=== PATIENT | female | born 1945 | race Caucasian/White ===

== ENCOUNTER 2016-11-06 09:44 | Emergency (ER) | payer OTHER ==
[~2016-11-06] VITALS: Ht 166.4 cm; Wt 97.5 kg
[~2016-11-06 09:44] MED LIST: ATEN-173 PO; NVLG SQ
[2016-11-06 09:52] VITALS: TEMP 37.8; Ht 166.4 cm; Wt 97.5 kg
[2016-11-06 10:06] VITALS: O2SAT 94
[2016-11-06] MEDS ORDERED: ONDANSETRON INJ 2 MG/ML 2 ML VIAL IV STA (10:10)
[2016-11-06] MEDS ORDERED: SODIUM CHLORIDE 0.9% 1000ML 2,000 ML IV ONE (10:15)
[2016-11-06 10:23] LABS: BASO % 0.4 %; BASO ABS # 0.04 K/uL (0-0.2); COMPLETE YES; EOS % 0.8 %; HEMATOCRIT 33.1 % (37-47); IG% 0.2 %; LYMPH % 15.3 %; LYMPH ABS # 1.36 K/uL (1.2-3.4); MEAN CELL VOLUME 81.9 fL (80-100); MEAN CORPUSCULAR HEMOGLOBIN 27.7 pg (25-34); MEAN CORPUSCULAR HGB CONC 33.8 g/dl (32-36); MEAN PLATELET VOLUME 8.8 fL (7.4-10.4); MONO % 14.1 %; NEUT % 69.2 %; PLATELET COUNT 219 K/uL (130-400); RED BLOOD COUNT 4.04 M/uL (4.2-5.4); WHITE BLOOD COUNT 8.91 K/uL (4.8-10.8)
--- NOTE | 2016-11-06 10:32 | EMERGENCY ROOM VISIT NOTE ---
History Report prepared by Ulises: Lindsey Harmon Under the Supervision of: Dr. Ronal Caldwell D.O. First contact with patient: 09:56 Chief Complaint: NAUSEA Stated Complaint: PAIN W/BREATHING, NAUSEA, VOMITING HX: DIABETES Nursing Triage Summary: Pt c/o nausea and vomiting since this morning and earlier in the week in "the lower lobes of my lungs I had some discomfort". Remicade was supposed to be adminstered today so assumed pain was because it was due. BSG this am was 124. Cough productive since this am. History of Present Illness The patient is a 71 year old female who presents to the Emergency Room with complaints of persistent nausea that began this morning. She currently rates her discomfort as a 6/10 in severity. The patient states that she woke this morning with nausea and then began vomiting around 0800. She states that she also noticed some slight shortness of breath, but denies any chest pain. The patient states that she was supposed to have a Remicade infusion this morning for her psoriatic arthritis. She states that her and her daughter called the doctor's office and was instructed to come to the emergency department for further evaluation and treatment. The patient denies any fevers or abdominal pain. She states that she has had many sick contacts with colds, but denies anyone being diagnosed with the flu. The patient states that she got her flu shot this year. She states that she had pneumonia in the fall. The patient denies any history of PEs, DVTs, or cancer, but notes a family history of cancer , noting that both of her parents from cancer. She denies any recreational drug use, smoking, or drinking. The patient states that she took her medications this morning, but vomited them all back up other than her Levothyroxine and cranberry pills. Source of History: patient Onset: this morning Position: other (global) Symptom Intensity: 6/10 Quality: other (nausea and vomiting) Timing: other (persistent) Associated Symptoms: + SOB, No abdominal pain, No chest pain, No fevers Review of Systems See above for pertinent positives & negatives. A total of 10 systems reviewed and were otherwise negative. Past Medical & Surgical Medical Problems: (1) Diabetes (2) High blood pressure Family History Cancer Diabetes mellitus Hypertension Social History Smoking Status: Never Smoker Alcohol Use: none Drug Use: none Marital Status: single Housing Status: lives with family Occupation Status: unemployed Current/Historical Medications Scheduled Aspirin (Aspirin Ec), 81 MG PO DAILY Atenolol (Tenormin), 75 MG PO DAILY Cranberry-Vitamin C-Vitamin E (Cranberry), 1 CAP PO DAILY Cyanocobalamin (Vitamin B-12), 1,000 MCG PO DAILY Hydralazine Hcl (Apresoline), 10 MG PO QID Hydrochlorothiazide (Hctz), 25 MG PO DAILY Insulin Aspart (Novolog), Unknown Dose SQ UD Insulin Glargine (Lantus Solostar), 70 UNITS SC HS Levofloxacin (Levaquin), 750 MG PO DAILY Levothyroxine Sodium (Synthroid), 125 MCG PO DAILY Metformin Hcl (Glucophage), 250 MG PO BID Multivitamin (Multivitamin), 1 TAB PO DAILY Ramipril (Altace), 10 MG PO BID Rosuvastatin Calcium (Crestor), 20 MG PO HS Scheduled PRN Acetaminophen (Tylenol), 1,000 MG PO DIRECTED PRN for Pain Prochlorperazine Maleate (Compazine), 10 MG PO Q6H PRN for Nausea Miscellaneous Medications Infliximab (Remicade), MG IV Allergies Coded Allergies: Rosiglitazone (Verified Allergy, Severe, leg and arm swelling, heaviness in chest, 11/06/16) Acetaminophen (Unverified Allergy, Unknown, unknown, 11/06/16) Flurbiprofen (Verified Allergy, Unknown, nausea, muscle pain, pain in side , 11/06/16) Insulin Isophane (Verified Adverse Reaction, Intermediate, funny feeling in the morning, urinated more, dry mouth, 11/06/16) Amlodipine (Verified Adverse Reaction, Mild, nausea and dizziness, 11/06/16 ) Amoxicillin (Verified Adverse Reaction, Mild, nausea, diarrhea, 11/06/16) Cephalexin (Verified Adverse Reaction, Mild, diarrhea, vomiting, 11/06/16) Hydrochlorothiazide (Verified Adverse Reaction, Mild, DECREASE IN URINE OUTPUT, 11/06/16) Metformin (Verified Adverse Reaction, Mild, diarrhea and metal taste, 11/06) Naproxen (Verified Adverse Reaction, Mild, interference with kidney function, 11/06/16) Nitrofurantoin (Verified Adverse Reaction, Mild, diarrhea,vomiting, ) Pioglitazone (Verified Adverse Reaction, Mild, dry mouth, 11/06/16) Propoxyphene (Verified Adverse Reaction, Mild, NAUSEA, DIZZINESS, 11/06/16) Sulfamethoxazole w/Trimethoprim (Verified Adverse Reaction, Mild, diarrhea and vomiting, 11/06/16) Sulindac (Verified Adverse Reaction, Mild, fast heart beat, 11/06/16) Physical Exam Vital Signs Date Time Temp Pulse Resp B/P Pulse Ox O2 Delivery O2 Flow Rate FiO2 11/06/16 13:30 86 16 152/73 95 Room Air 11/06/16 11:30 101 19 126/64 92 Room Air 11/06/16 10:17 113 11/06/16 10:08 118 20 196/78 94 Room Air 11/06/16 10:06 94 Room Air 11/06/16 09:52 37.8 108 19 131/66 93 Room Air Physical Exam GENERAL: Patient is well appearing and in no acute distress. HEENT: No acute trauma, normocephalic atraumatic, mucous membranes moist, no nasal congestion, no scleral icterus. NECK: No stridor, no adenopathy, no meningismus, trachea is midline. CHEST: Mild tenderness to palpation to the bilateral lower chest. LUNGS: Scattered rhonchi bilaterally. No dyspnea. equal bilaterally. No wheeze. HEART: Tachycardic rate and regular rhythm. No murmurs, rubs, gallops appreciated. ABDOMEN: Soft, nontender, bowel sounds positive, no masses appreciated, no peritonitis. BACK: No midline tenderness, no CVA tenderness EXTREMITIES: Normal motion all extremities, no cyanosis, no edema. NEUROLOGIC: Alert and oriented, no acute motor or sensory deficits, no focal weakness, cranial nerves grossly intact. SKIN: No rash, no jaundice, no diaphoresis. Medical Decision & Procedures ER Provider Diagnostic Interpretation: X ray results and stated below per my interpretation and radiologist interpretation. Other radiology results and stated below per my review and radiologist interpretation: Chest x-ray 2 view: infiltrate in the left base. CHEST 2 VIEWS ROUTINE CLINICAL HISTORY: Left lower chest pain, nausea and vomiting. COMPARISON STUDY: Chest radiograph July 25, 2016. FINDINGS: There is no pneumothorax or pleural effusion. Lung volumes are at the lower limits of normal. Cardiomediastinal silhouette is unremarkable. There is no evidence of pulmonary edema. Linear left lower lung opacity favors atelectasis. IMPRESSION: 1. No acute findings. 2. Linear left basilar opacity suggestive of atelectasis. Electronically signed by: Sumeet Durand M.D. 11/06/2016 11:13 AM Dictated Date/Time: 11/06/2016 11:11 AM Laboratory Results 11/06/16 10:05 Red Blood Count 4.04, Mean Corpuscular Volume 81.9, Mean Corpuscular Hemoglobin 27.7, Mean Corpuscular Hemoglobin Concent 33.8, Mean Platelet Volume 8.8, Neutrophils (%) (Auto) 69.2, Lymphocytes (%) (Auto) 15.3, Monocytes (%) (Auto) 14.1, Eosinophils (%) (Auto) 0.8, Basophils (%) (Auto) 0.4, Neutrophils # (Auto ) 6.16, Lymphocytes # (Auto) 1.36, Monocytes # (Auto) 1.26, Eosinophils # (Auto ) 0.07, Basophils # (Auto) 0.04 11/06/16 10:05 Test 11/06/16 00:00 11/06/16 10:05 11/06/16 12:50 Influenza Type A (RT-PCR) POS for Influ A (NEG) Influenza Type B (RT-PCR) Neg for Influ B (NEG) White Blood Count 8.91 K/uL (4.8-10.8) Red Blood Count 4.04 M/uL (4.2-5.4) Hemoglobin 11.2 g/dL (12.0-16.0) Hematocrit 33.1 % (37-47) Mean Corpuscular Volume 81.9 fL (80-100) Mean Corpuscular Hemoglobin 27.7 pg (25-34) Mean Corpuscular Hemoglobin Concent 33.8 g/dl (32-36) Platelet Count 219 K/uL (130-400) Mean Platelet Volume 8.8 fL (7.4-10.4) Neutrophils (%) (Auto) 69.2 % Lymphocytes (%) (Auto) 15.3 % Monocytes (%) (Auto) 14.1 % Eosinophils (%) (Auto) 0.8 % Basophils (%) (Auto) 0.4 % Neutrophils # (Auto) 6.16 K/uL (1.4-6.5) Lymphocytes # (Auto) 1.36 K/uL (1.2-3.4) Monocytes # (Auto) 1.26 K/uL (0.11-0.59) Eosinophils # (Auto) 0.07 K/uL (0-0.5) Basophils # (Auto) 0.04 K/uL (0-0.2) RDW Standard Deviation 45.5 fL (36.4-46.3) RDW Coefficient of Variation 15.3 % (11.5-14.5) Immature Granulocyte % (Auto) 0.2 % Immature Granulocyte # (Auto) 0.02 K/uL (0.00-0.02) D-Dimer 450 ug/L FEU (0-500) Anion Gap 12.0 mmol/L (3-11) Est Creatinine Clear Calc Drug Dose 56.3 ml/min Estimated GFR () 59.3 Estimated GFR (Non- 51.2 BUN/Creatinine Ratio 23.7 (10-20) Calcium Level 9.0 mg/dl (8.5-10.1) Total Bilirubin 0.5 mg/dl (0.2-1) Direct Bilirubin 0.1 mg/dl (0-0.2) Aspartate Amino Transf (AST/SGOT) 145 U/L (15-37) Alanine Aminotransferase (ALT/SGPT) 66 U/L (12-78) Alkaline Phosphatase 37 U/L (45-117) Total Protein 8.0 gm/dl (6.4-8.2) Albumin 4.1 gm/dl (3.4-5.0) Lipase 259 U/L (73-393) Urine Color YELLOW Urine Appearance CLEAR (CLEAR) Urine pH 5.0 (4.5-7.5) Urine Specific [place] 1.013 (1.000-1.030) Urine Protein NEG (NEG) Urine Glucose (UA) NEG (NEG) Urine Ketones NEG (NEG) Urine Occult Blood NEG (NEG) Urine Nitrite POS (NEG) Urine Bilirubin NEG (NEG) Urine Urobilinogen NEG (NEG) Urine Leukocyte Esterase TRACE (NEG) Urine WBC (Auto) 5-10 /hpf (0-5) Urine RBC (Auto) 0-4 /hpf (0-4) Urine Hyaline Casts (Auto) 0 /lpf (0-5) Urine Epithelial Cells (Auto) >30 /lpf (0-5) Urine Bacteria (Auto) 1+ (NEG) Laboratory results as reviewed by me. Medications Administered Medications (Trade) Dose Ordered Sig/Elke Route Start Time Stop Time Status Last Admin Dose Admin Sodium Chloride (Nss 1000ml) 2,000 ml @ 999 mls/hr Q2H1M ONCE IV 11/06/16 10:15 11/06/16 12:15 DC 11/06/16 10:15 999 MLS/HR Ondansetron HCl 4 mg 4 mg NOW STAT IV 11/06/16 10:10 11/06/16 10:14 DC 11/06/16 10:26 4 MG Ceftriaxone Sodium/Dextrose (Rocephin Inj/D5 50ml) 70 ml @ 100 mls/hr TODAY@1130 IV 11/06/16 11:30 11/06/16 16:00 11/06/16 11:41 100 MLS/HR Levofloxacin (Levaquin / D5W) 750 mg TODAY@1100 IV 11/06/16 11:00 11/06/16 15:00 11/06/16 12:19 750 MG ECG Indication: SOB/dyspnea Rate (beats per minute): 113 Rhythm: sinus tachycardia Findings: other (Normal axis, normal intervals, no ST Segment changes) Comparison ECG Date: 07/25/16 Change: EKG Change: When compared to EKG done on 07/25/16, sinus tachycardia is now present, no other changes. ED Course 1003: The patient was evaluated in room A12B. A complete history and physical exam was performed. 1010: Ordered Zofran Inj 4 mg IV. 1015: Ordered Sodium Chloride 2000 ml @ 999 mls/hr IV. 1100: Ordered Levofloxacin 750 mg IV. 1130: Ordered Ceftriaxone Sodium 2000 mg/Dextrose 70 ml @ 100 mls/hr IV. 1152: I reevaluated the patient and she is feeling better. 1235: I reevaluated the patient and I informed her of her positive flu finding. 1421: I reevaluated the patient and she is resting comfortably. I discussed all the exam findings with her and I discussed the treatment plan. She verbalized complete understanding and agreement. She is ready to go home. Medical Decision Differential diagnosis: Etiologies such as gastroenteritis, food borne illness, infections, appendicitis , diverticulitis, inflammatory bowel disease, obstruction, GI bleed, biliary pathology, influenza, pneumonia as well as others were entertained. Patient is a 71-year-old female on Remicade for psoriatic arthritis which indicates a relative immunocompromise, who presents with a low-grade temperature , shortness of breath generalized malaise concern for pneumonia which she had before with similar symptoms. Chest x-ray today reveals a left lower lobe infiltrate which is likely the cause of her symptoms this would be a community- acquired pneumonia. In review of her allergies she has many adverse reactions however minimal anna allergic reactions. Accordingly have written for Rocephin and Levaquin IV dosing here and Levaquin to take as an outpatient. She'll be volume resuscitated with 2 L normal saline. Patient feels much improved after receiving IV antibiotics and normal saline, advised to avoid patient's or immunocompromise or extremes of days for the next 2 weeks, influenza B-positive no indication for Tamiflu, put on Levaquin as outpatient, will follow up with primary care doc in 1-2 weeks. Advised to call her primary doctor who prescribed the Remicade, will likely need to push the Remicade dosing off another week Impression Primary Impression: LLL pneumonia Additional Impressions: Psoriatic arthritis Tachycardia Dehydration Influenza B Scribe Attestation The scribe's documentation has been prepared under my direction and personally reviewed by me in its entirety. I confirm that the note above accurately reflects all work, treatment, procedures, and medical decision making performed by me. Departure Information Dispostion Home / Self-Care Prescriptions Prochlorperazine Maleate (COMPAZINE) 10 Mg Tab 10 MG PO Q6H Y for Nausea, #10 TAB Prov: Ronal Caldwell, D.O. 11/06/16 Levofloxacin (Levaquin) 750 Mg Tab 750 MG PO DAILY, #5 TAB Prov: Ronal Caldwell, D.O. 11/06/16 Referrals Moisés Saleem M.D. (PCP) Forms HOME CARE DOCUMENTATION FORM, IMPORTANT VISIT INFORMATION Patient Instructions ED Pneumonia, My [facility] Additional Instructions Follow-up with her primary care provider in 1-2 weeks for repeat chest x-ray to ensure resolution of pneumonia. Return immediately for increasing shortness of breath, chest pain, passing out or any other concerns. Call your primary doctor regarding your next Remicade infusion and whether that needs to be pushed back in another week Work Instructions Return To Work: 2 days Problem Qualifiers
[2016-11-06 10:45] LABS: BUN/CREATININE RATIO 23.7 (10-20); CREATININE 1.1 mg/dl (0.60-1.20); POTASSIUM 3.9 mmol/L (3.5-5.1)
[2016-11-06] MEDS ORDERED: LEVO1TAB35 PO (10:54)
[2016-11-06] MEDS ORDERED: LEVAQUIN 750MG / 150ML D5W IV SCH (11:00)
--- NOTE | 2016-11-06 11:15 | DIAGNOSTIC IMAGING REPORT ---
CHEST 2 VIEWS ROUTINE CLINICAL HISTORY: Left lower chest pain, nausea and vomiting. COMPARISON STUDY: Chest radiograph July 25, 2016. FINDINGS: There is no pneumothorax or pleural effusion. Lung volumes are at the lower limits of normal. Cardiomediastinal silhouette is unremarkable. There is no evidence of pulmonary edema. Linear left lower lung opacity favors atelectasis. IMPRESSION: 1. No acute findings. 2. Linear left basilar opacity suggestive of atelectasis. Electronically signed by: Sumeet Durand M.D. 11/06/2016 11:13 AM Dictated Date/Time: 11/06/2016 11:11 AM
[2016-11-06] MEDS ORDERED: CEFTRIAXONE SOD INJ 2,000 MG in DEXTROSE 5% 50ML 50 ML IV SCH (11:30)
[2016-11-06 12:31] LABS: INFLUENZA B PCR Neg for Influ B (NEG)
[2016-11-06 12:34] LABS: INFLUENZA A PCR POS for Influ A (NEG)
[2016-11-06 13:22] LABS: URINE APPEARANCE CLEAR (CLEAR); URINE BILIRUBIN NEG (NEG); URINE COLOR YELLOW; URINE EPITHELIAL CELL AUTO >30 /lpf (0-5); URINE NITRITE POS (NEG); URINE SPECIFIC GRAVITY 1.013 (1.000-1.030); UROBILINOGEN NEG (NEG)
[2016-11-06 13:30] LABS: MANUAL MICROSCOPIC REQUIRED? NO; REVIEW REQ? NO
[2016-11-06] MEDS ORDERED: PROC1TAB5 PO (14:22)
[2016-11-06] MEDS ORDERED: PROCHLORPERAZINE 5 MG/ML 2 ML VIAL ONE (14:47)
[2016-11-06 15:13] VITALS: BP 149/77; PULSE 93; O2SAT 95
[2016-11-07] MEDS ORDERED: ACET-1256 PO (10:18)
[2016-11-07] MEDS ORDERED: RMCI IV (12:41)
[2016-11-07] MEDS ORDERED: MULT-506 PO (17:04)
[2016-11-07] MEDS ORDERED: CYAN10005 PO (17:04)
[2016-11-07] MEDS ORDERED: ROSU20TA PO (17:04)
[2016-11-07] MEDS ORDERED: GLC/500 PO (17:04)
[2016-11-07] MEDS ORDERED: INSDGIPEN SC (17:04)
[2016-11-07] MEDS ORDERED: CRAN1CAP15 PO (17:04)
[2016-11-07] MEDS ORDERED: HYDR25TA4 PO (17:04)
[2016-11-07] MEDS ORDERED: HYDR-4715 PO (17:04)
[2016-11-07] MEDS ORDERED: ALT/10 PO (17:04)
[2016-11-07] MEDS ORDERED: ASPI81TA28 PO (17:04)
[2016-11-07] MEDS ORDERED: LEVO125T72 PO (17:04)
[2016-11-07] MEDS ORDERED: NVLGI/PEN SC (18:59)
[2016-11-07] MEDS ORDERED: ONDA4TAB46 PO (18:59)
[2016-11-07] MEDS ORDERED: ATEN100T PO (19:11)
[2016-11-09] MEDS ORDERED: TNR25 PO (16:32)
[2016-11-09] MEDS ORDERED: BENZ100C7 PO (16:32)
[2016-11-09] MEDS ORDERED: TMF75 PO (16:32)
[2016-11-09] MEDS ORDERED: INSDGIPEN SC (16:49)
== END 2016-11-06 15:22 | disposition home or self-care (01) ==
LOC: C.EDB 09:46 → C.EDA 15:22
DX: J18.9 Pneumonia, unspecified organism (principal); J11.1 Influenza due to unidentified influenza virus with other respiratory manifestations; L40.50 Arthropathic psoriasis, unspecified; E86.0 Dehydration; R00.0 Tachycardia, unspecified; E11.9 Type 2 diabetes mellitus without complications; I10 Essential (primary) hypertension; Z79.4 Long term (current) use of insulin; Z79.82 Long term (current) use of aspirin; Z79.84 Long term (current) use of oral hypoglycemic drugs; Z79.899 Other long term (current) drug therapy; Z88.1 Allergy status to other antibiotic agents; Z88.2 Allergy status to sulfonamides; Z88.6 Allergy status to analgesic agent; Z88.8 Allergy status to other drugs, medicaments and biological substances; Z80.9 Family history of malignant neoplasm, unspecified; Z83.3 Family history of diabetes mellitus; Z82.49 Family history of ischemic heart disease and other diseases of the circulatory system

== ENCOUNTER 2016-11-07 17:47 | Inpatient (IN) | payer OTHER ==
[~2016-11-07] VITALS: Ht 167.6 cm; Wt 97.2 kg
[~2016-11-07 17:47] MED LIST changes: +ACET-1256 PO; +ALT/10 PO; +ASPI81TA28 PO; +CRAN1CAP15 PO; +CYAN10005 PO; +GLC/500 PO; +HYDR-4715 PO; +HYDR25TA4 PO; +INSDGIPEN SC; +LEVO125T72 PO; +LEVO1TAB35 PO; +MULT-506 PO; +PROC1TAB5 PO; +RMCI IV; +ROSU20TA PO
--- NOTE | 2016-11-07 18:12 | EMERGENCY ROOM VISIT NOTE ---
History Report prepared by Ulises: Marco Jonas Under the Supervision of: Dr. Mikal Sheth M.D. First contact with patient: 17:56 Chief Complaint: DIARRHEA Stated Complaint: DIARRHEA W/BLACK,VOMITING,FATIGUE-HERE 32 HRS AGO Nursing Triage Summary: triage note: pt reports nausea, vomitting diarhhea since yesterday. daughter reports pt has + flu and pnx. daughter reports "there was some black in her stool." History of Present Illness The patient is a 71 year old female who presents to the Emergency Room with complaints of diarrhea that began yesterday. The patient was diagnosed with influenza, pneumonia, and dehydration 32 hours ago in the ED. The diarrhea is a new symptom that began yesterday. The patient and her daughter report that the patient has been having nausea, vomiting, melena, diarrhea, fatigue, and abdominal pain. She rates her current symptom severity an 8/10. She does not currently have a fever. The Levaquin only stayed in her system for only about two hours yesterday due to emesis. Source of History: patient Onset: yesterday Position: other (GI) Symptom Intensity: 8/10 Quality: other (diarrhea) Timing: worsening Associated Symptoms: + abdominal pain, + fatigue, + melena, + nausea, + vomiting, No fevers Review of Systems All systems have been listed, reviewed, and are negative other than those previously mentioned. Please see Additional Medical History Sheet. Past Medical & Surgical Medical Problems: (1) Diabetes (2) High blood pressure (3) UTI (urinary tract infection) Family History Cancer Diabetes mellitus Hypertension Social History Smoking Status: Never Smoker Alcohol Use: none Drug Use: none Marital Status: single Housing Status: lives with family Occupation Status: unemployed Current/Historical Medications Scheduled Aspirin (Aspirin Ec), 81 MG PO DAILY Atenolol (Tenormin), 100 MG PO DAILY Cranberry-Vitamin C-Vitamin E (Cranberry), 1 CAP PO DAILY Cyanocobalamin (Vitamin B-12), 1,000 MCG PO DAILY Hydralazine Hcl (Apresoline), 10 MG PO QID Hydrochlorothiazide (Hctz), 25 MG PO DAILY Infliximab (Remicade), 1 DOSE IV [id number] Insulin Aspart (Novolog Flexpen), 1 DOSE SC UD Insulin Glargine (Lantus Solostar), 70 UNITS SC HS Levofloxacin (Levaquin), 750 MG PO DAILY Levothyroxine Sodium (Synthroid), 125 MCG PO DAILY Metformin Hcl (Glucophage), 250 MG PO BID Multivitamin (Multivitamin), 1 TAB PO DAILY Ramipril (Altace), 10 MG PO BID Rosuvastatin Calcium (Crestor), 20 MG PO HS Scheduled PRN Acetaminophen (Tylenol), 1,000 MG PO UD PRN for Pain or Fever Ondansetron Hcl (Zofran), 4 MG PO Q6H PRN for Nausea Allergies Coded Allergies: Rosiglitazone (Verified Allergy, Severe, leg and arm swelling, heaviness in chest, 11/06/16) Acetaminophen (Unverified Allergy, Unknown, unknown, 11/06/16) Flurbiprofen (Verified Allergy, Unknown, nausea, muscle pain, pain in side , 11/06/16) Insulin Isophane (Verified Adverse Reaction, Intermediate, funny feeling in the morning, urinated more, dry mouth, 11/06/16) Amlodipine (Verified Adverse Reaction, Mild, nausea and dizziness, 11/06/16 ) Amoxicillin (Verified Adverse Reaction, Mild, nausea, diarrhea, 11/06/16) Cephalexin (Verified Adverse Reaction, Mild, diarrhea, vomiting, 11/06/16) Hydrochlorothiazide (Verified Adverse Reaction, Mild, DECREASE IN URINE OUTPUT, 11/06/16) Metformin (Verified Adverse Reaction, Mild, diarrhea and metal taste, 11/06) Naproxen (Verified Adverse Reaction, Mild, interference with kidney function, 11/06/16) Nitrofurantoin (Verified Adverse Reaction, Mild, diarrhea,vomiting, ) Pioglitazone (Verified Adverse Reaction, Mild, dry mouth, 11/06/16) Propoxyphene (Verified Adverse Reaction, Mild, NAUSEA, DIZZINESS, 11/06/16) Sulfamethoxazole w/Trimethoprim (Verified Adverse Reaction, Mild, diarrhea and vomiting, 11/06/16) Sulindac (Verified Adverse Reaction, Mild, fast heart beat, 11/06/16) Physical Exam Vital Signs Date Time Temp Pulse Resp B/P Pulse Ox O2 Delivery O2 Flow Rate FiO2 11/07/16 20:00 79 16 118/57 97 Room Air 11/07/16 20:00 36.8 11/07/16 17:53 36.5 52 20 107/63 96 Room Air Physical Exam GENERAL: Patient awake, alert, oriented x 3. Patient follows commands. Patient is well-nourished. Patient appears mildly dehydrated. Patient appears pale, repetitively vomiting on evaluation. Patient is in moderate distress. SKIN: No erythema, pallor, cyanosis or rash HEENT: Normal head, pupils equal, reactive to light and accommodation. Oral cavity and posterior pharynx appear normal. LUNGS: Clear to auscultation. No wheezes, no rales, no rhonchi. HEART: No murmurs. No gallops. No rubs ABDOMEN: No masses, no rebound, no hepatomegaly or splenomegaly. EXTREMITIES: No signs of trauma. No pedal or pretibial edema. No calf or thigh tenderness. NEUROLOGIC: Cranial nerves II-XII within normal limits. No gross motor sensory function deficits. Medical Decision & Procedures Laboratory Results 11/07/16 18:00 Red Blood Count 3.84, Mean Corpuscular Volume 82.8, Mean Corpuscular Hemoglobin 27.3, Mean Corpuscular Hemoglobin Concent 33.0, Mean Platelet Volume 8.6, Neutrophils (%) (Auto) 36.6, Lymphocytes (%) (Auto) 35.4, Monocytes (%) (Auto) 27.5, Eosinophils (%) (Auto) 0.0, Basophils (%) (Auto) 0.2, Neutrophils # (Auto ) 2.27, Lymphocytes # (Auto) 2.20, Monocytes # (Auto) 1.71, Eosinophils # (Auto ) 0.00, Basophils # (Auto) 0.01 11/07/16 18:00 Test 11/07/16 18:00 11/07/16 18:06 White Blood Count 6.21 K/uL (4.8-10.8) Red Blood Count 3.84 M/uL (4.2-5.4) Hemoglobin 10.5 g/dL (12.0-16.0) Hematocrit 31.8 % (37-47) Mean Corpuscular Volume 82.8 fL (80-100) Mean Corpuscular Hemoglobin 27.3 pg (25-34) Mean Corpuscular Hemoglobin Concent 33.0 g/dl (32-36) Platelet Count 195 K/uL (130-400) Mean Platelet Volume 8.6 fL (7.4-10.4) Neutrophils (%) (Auto) 36.6 % Lymphocytes (%) (Auto) 35.4 % Monocytes (%) (Auto) 27.5 % Eosinophils (%) (Auto) 0.0 % Basophils (%) (Auto) 0.2 % Neutrophils # (Auto) 2.27 K/uL (1.4-6.5) Lymphocytes # (Auto) 2.20 K/uL (1.2-3.4) Monocytes # (Auto) 1.71 K/uL (0.11-0.59) Eosinophils # (Auto) 0.00 K/uL (0-0.5) Basophils # (Auto) 0.01 K/uL (0-0.2) RDW Standard Deviation 47.5 fL (36.4-46.3) RDW Coefficient of Variation 15.7 % (11.5-14.5) Immature Granulocyte % (Auto) 0.3 % Immature Granulocyte # (Auto) 0.02 K/uL (0.00-0.02) Prothrombin Time 11.4 SECONDS (9.0-12.0) Prothromb Time International Ratio 1.1 (0.9-1.1) Activated Partial Thromboplast Time 30.0 SECONDS (21.0-31.0) Partial Thromboplastin Ratio 1.2 Anion Gap 12.0 mmol/L (3-11) Est Creatinine Clear Calc Drug Dose 51.4 ml/min Estimated GFR () 53.4 Estimated GFR (Non- 46.1 BUN/Creatinine Ratio 21.0 (10-20) Calcium Level 8.4 mg/dl (8.5-10.1) Total Bilirubin 0.3 mg/dl (0.2-1) Aspartate Amino Transf (AST/SGOT) 183 U/L (15-37) Alanine Aminotransferase (ALT/SGPT) 94 U/L (12-78) Alkaline Phosphatase 31 U/L (45-117) Total Protein 7.3 gm/dl (6.4-8.2) Albumin 3.5 gm/dl (3.4-5.0) Globulin 3.8 gm/dl (2.5-4.0) Albumin/Globulin Ratio 0.9 (0.9-2) Lipase 214 U/L (73-393) Bedside Glucose 146 mg/dl (70-90) Laboratory results as stated above per my review. Medications Administered Medications (Trade) Dose Ordered Sig/Elke Route Start Time Stop Time Status Last Admin Dose Admin Ondansetron HCl 4 mg 4 mg Q1HWA PRN IV 11/07/16 18:15 12/07/16 18:14 11/07/16 18:10 4 MG Sodium Chloride 1,000 ml @ 1,000 mls/hr Q1H ONCE IV 11/07/16 18:15 11/07/16 19:14 DC 11/07/16 18:11 1,000 MLS/HR Sodium Chloride 1,000 ml @ 1,000 mls/hr Q1H ONCE IV 11/07/16 20:00 11/07/16 20:59 11/07/16 20:00 1,000 MLS/HR Promethazine HCl/ Sodium Chloride (Phenergan Inj/ Nss 50ml) 50.5 ml @ 204 mls/hr NOW STAT IV 11/07/16 19:47 11/07/16 20:01 DC 11/07/16 20:15 204 MLS/HR ED Course 175: Past medical records reviewed. The patient was evaluated in room A2. A complete history and physical examination was performed. 1814: Sodium Chloride 1000 ml @ 1000 mls/hr IV, Zofran Ing 4 mg IV 1944: I reassessed the patient at this time. She is feeling slightly better. She is still pale and nauseous. 1946: Promethazine HCl 12.5 mg/Sodium Chloride 50.5 ml @ 204 mls/hr IV 1999: Sodium Chloride 1000 ml @ 1000 mls/hr IV 2004: Upon reevaluation, the patient is resting. I discussed today's findings with her. She verbalized agreement of the treatment plan. I spoke with Dr. Stubbs of the [facility] Hospitalist Service to evaluate the patient for further management. Medical Decision Nurses notes reviewed. Medical history sheet reviewed. Differential diagnosis includes but is not limited to: pneumonia, intractable vomiting, and metabolic disorder. The patient was fully evaluated 1 day ago and found to have pneumonia and influenza a. The patient returns today with intractable vomiting. She also had black stool. The patient has been unable to hold down any fluids. Examination today reveals a very pale mildly to moderately dehydrated female. Hemoglobin is down almost 1 g from yesterday. The patient was given IV fluids and Zofran. She was also given Phenergan. Labs from yesterday in addition to labs today were all reviewed. Please see above. I discussed care with the patient and the patient's daughter. I also discussed care with the hospitalist. Consults Time Called: 1951 Consulting Physician: Dr. Stubbs - [facility] Returned Call: 1956 He will be evaluating the patient for further management. Impression Primary Impression: Intractable vomiting Additional Impressions: Dehydration PNA (pneumonia) Influenza Scribe Attestation The scribe's documentation has been prepared under my direction and personally reviewed by me in its entirety. I confirm that the note above accurately reflects all work, treatment, procedures, and medical decision making performed by me. Departure Information Dispostion Being Evaluated By Hospitalist Referrals Moisés Saleem M.D. (PCP) Patient Instructions My [facility] Problem Qualifiers
[2016-11-07 18:13] LABS: BASO % 0.2 %; BASO ABS # 0.01 K/uL (0-0.2); COMPLETE YES; HEMATOCRIT 31.8 % (37-47); IG% 0.3 %; LYMPH % 35.4 %; MEAN CELL VOLUME 82.8 fL (80-100); MEAN CORPUSCULAR HEMOGLOBIN 27.3 pg (25-34); MEAN PLATELET VOLUME 8.6 fL (7.4-10.4); MONO % 27.5 %; NEUT % 36.6 %; PLATELET COUNT 195 K/uL (130-400); RED BLOOD COUNT 3.84 M/uL (4.2-5.4); WHITE BLOOD COUNT 6.21 K/uL (4.8-10.8)
[2016-11-07] MEDS ORDERED: SODIUM CHLORIDE 0.9% 1000ML 1,000 ML IV ONE ×2 (18:15→20:00)
[2016-11-07] MEDS ORDERED: ONDANSETRON INJ 2 MG/ML 2 ML VIAL IV PRN ×2 (18:15→21:00)
[2016-11-07 18:22] LABS: INR 1.1 (0.9-1.1); PARTIAL THROMBOPLASTIN RATIO 1.2; PROTHROMBIN TIME (PATIENT) 11.4 SECONDS (9.0-12.0)
[2016-11-07 18:32] LABS: CALCIUM 8.4 mg/dl (8.5-10.1); CREATININE 1.2 mg/dl (0.60-1.20); POTASSIUM 3.6 mmol/L (3.5-5.1)
[2016-11-07 18:34] LABS: ALB/GLOB RATIO 0.9 (0.9-2)
[2016-11-07] MEDS ORDERED: ONDA4TAB46 PO (18:59)
[2016-11-07] MEDS ORDERED: NVLGI/PEN SC (18:59)
[2016-11-07] MEDS ORDERED: ATEN100T PO (19:11)
[2016-11-07] MEDS ORDERED: PROMETHAZINE HCL INJ 12.5 MG in SODIUM CHLORIDE 0.9% 50ML 50 ML IV STA (19:47)
[2016-11-07] MEDS ORDERED: DEXTROSE 50% 50 ML SYR IV PRN (21:00)
[2016-11-07] MEDS ORDERED: LORAZEPAM 2 MG/ML 1 ML VIAL IV PRN ×2 (21:00)
[2016-11-07] MEDS: HydrALAZINE 10 MG TAB PO SCH (21:00)
[2016-11-07] MEDS ORDERED: GLUCOSE 10 TABS/TUBE PO PRN (21:00)
[2016-11-07] MEDS ORDERED: ALUMINUM/MAGNESIUM/SIMETH (MAALOX MAX) 30 ML UDC PO PRN (21:00)
[2016-11-07] MEDS ORDERED: PROMETHAZINE HCL INJ 12.5 MG in SODIUM CHLORIDE 0.9% 50ML 50 ML IV PRN (21:00)
[2016-11-07] MEDS ORDERED: GLUCAGON FOR INJ 1 MG VIAL SQ PRN (21:00)
[2016-11-07] MEDS ORDERED: MAGNESIUM HYDROXIDE SUSP 30 ML UDC PO PRN (21:00)
[2016-11-07] MEDS ORDERED: GLUCOSE 40% GEL 15 GM TUBE PO PRN (21:00)
[2016-11-07] MEDS ORDERED: BISACODYL 10 MG SUPP PR PRN (21:00)
[2016-11-07] MEDS ORDERED: MoRPHine SULFATE 2 MG/ML CARP IV PRN (21:00)
[2016-11-07] MEDS ORDERED: DiphenhydrAMINE HCL 50 MG/ML VIAL IV PRN (21:00)
[2016-11-07] MEDS ORDERED: ZOLPIDEM TARTRATE 5 MG TAB PO PRN ×2 (21:00)
[2016-11-07] MEDS ORDERED: DOCUSATE SODIUM 100 MG CAP PO SCH (21:00)
[2016-11-07] MEDS ORDERED: MoRPHine SULFATE 4 MG/ML 1 ML CARP\\VIAL IV PRN (21:00)
[2016-11-07 21:45] VITALS: BP 121/68; PULSE 96; TEMP 36.9; O2SAT 97; Ht 167.6 cm; Wt 97.2 kg
[2016-11-07 21:55] VITALS: O2SAT 97
[2016-11-07] MEDS: INSULIN GLARGINE SOLOSTAR 100 UNITS/ML 3 ML PEN SC SCH (22:00)
[2016-11-07] MEDS: INSULIN ASPART 100 UNITS/ML 3 ML PEN SC SCH (22:00)
[2016-11-08] MEDS: NSS + 20MEQ KCL 1000ML 1,000 ML IV SCH ×3 (00:06→17:51)
[2016-11-08] MEDS: INSULIN ASPART 100 UNITS/ML 3 ML PEN SC SCH ×5 (00:07→20:14)
[2016-11-08] MEDS: INSULIN GLARGINE SOLOSTAR 100 UNITS/ML 3 ML PEN SC SCH ×2 (00:08→20:20)
--- NOTE | 2016-11-08 01:42 | History and Physical ---
History & Physical Date & Time of Service: Nov 08, 2016 at 01:32 Chief Complaint: Influenza,Intractable Vomiting Primary Care Physician: Moisés Saleem M.D. History of Present Illness Source: patient The patient is a 71-year-old female who initially presented to the emergency department 32 hours prior to arrival tonight with symptoms that led to a diagnosis of influenza, pneumonia and dehydration. She was discharged on Tamiflu and Levaquin however, she continued at worsening symptoms, and developed a new symptom of diarrhea with nausea and abdominal discomfort, and NSS referred for evaluation for admission. Past Medical/Surgical History Medical Problems: (1) UTI (urinary tract infection) Status: Resolved Family History Cancer Diabetes mellitus Hypertension Social History Smoking Status: Never Smoker Smokeless Tobacco Use: No Alcohol Use: socially Drug Use: none Marital Status: single Occupational Status: unemployed Multi-Drug Resistant Organisms History of MDRO: No Allergies Coded Allergies: Rosiglitazone (Verified Allergy, Severe, leg and arm swelling, heaviness in chest, 11/06/16) Acetaminophen (Unverified Allergy, Unknown, unknown, 11/06/16) Flurbiprofen (Verified Allergy, Unknown, nausea, muscle pain, pain in side , 11/06/16) Insulin Isophane (Verified Adverse Reaction, Intermediate, funny feeling in the morning, urinated more, dry mouth, 11/06/16) Amlodipine (Verified Adverse Reaction, Mild, nausea and dizziness, 11/06/16 ) Amoxicillin (Verified Adverse Reaction, Mild, nausea, diarrhea, 11/06/16) Cephalexin (Verified Adverse Reaction, Mild, diarrhea, vomiting, 11/06/16) Hydrochlorothiazide (Verified Adverse Reaction, Mild, DECREASE IN URINE OUTPUT, 11/06/16) Metformin (Verified Adverse Reaction, Mild, diarrhea and metal taste, 11/06) Naproxen (Verified Adverse Reaction, Mild, interference with kidney function, 11/06/16) Nitrofurantoin (Verified Adverse Reaction, Mild, diarrhea,vomiting, ) Pioglitazone (Verified Adverse Reaction, Mild, dry mouth, 11/06/16) Propoxyphene (Verified Adverse Reaction, Mild, NAUSEA, DIZZINESS, 11/06/16) Sulfamethoxazole w/Trimethoprim (Verified Adverse Reaction, Mild, diarrhea and vomiting, 11/06/16) Sulindac (Verified Adverse Reaction, Mild, fast heart beat, 11/06/16) Home Medications Scheduled Aspirin (Aspirin Ec), 81 MG PO DAILY Atenolol (Tenormin), 100 MG PO DAILY Cranberry-Vitamin C-Vitamin E (Cranberry), 1 CAP PO DAILY Cyanocobalamin (Vitamin B-12), 1,000 MCG PO DAILY Hydralazine Hcl (Apresoline), 10 MG PO QID Hydrochlorothiazide (Hctz), 25 MG PO DAILY Infliximab (Remicade), 1 DOSE IV [id number] Insulin Aspart (Novolog Flexpen), 1 DOSE SC UD Insulin Glargine (Lantus Solostar), 70 UNITS SC HS Levofloxacin (Levaquin), 750 MG PO DAILY Levothyroxine Sodium (Synthroid), 125 MCG PO DAILY Metformin Hcl (Glucophage), 250 MG PO BID Multivitamin (Multivitamin), 1 TAB PO DAILY Ramipril (Altace), 10 MG PO BID Rosuvastatin Calcium (Crestor), 20 MG PO HS Scheduled PRN Acetaminophen (Tylenol), 1,000 MG PO UD PRN for Pain or Fever Ondansetron Hcl (Zofran), 4 MG PO Q6H PRN for Nausea Review of Systems The patient denies chest pain, palpitations, lower extremity swelling, vision change, hearing change, weight change, pelvic pain, blood in urine or stool, dysuria, urinary frequency or urgency, memory loss, rash, abnormal bruising or bleeding, imbalance, focal weakness, numbness or tingling in arms or legs. The review of systems is otherwise negative other than for that already noted above, and at least 10 systems have been reviewed. Physical Exam Vital Signs Date Time Temp Pulse Resp B/P Pulse Ox O2 Delivery O2 Flow Rate FiO2 11/08/16 00:05 Room Air 11/07/16 21:55 36.8 66 16 118/57 97 11/07/16 21:45 36.9 96 18 121/68 97 Room Air 11/07/16 21:32 66 16 118/57 97 Room Air 11/07/16 20:00 79 16 118/57 97 Room Air 11/07/16 20:00 36.8 11/07/16 17:53 36.5 52 20 107/63 96 Room Air The patient is awake, well-developed and adequately nourished, alert and oriented 3, normocephalic and atraumatic, looks pale and fatigued, lying in bed and in otherwise no acute distress. HEENT--PERRL, EOMI, mucous membranes and oropharynx dry. Neck--supple, no JVD or bruits, thyroid normal, trachea midline, no adenopathy. Heart--normal S1 and S2, no extra beats, no murmurs, rubs or gallops. Lungs--clear bilaterally, no respiratory distress, no accessory muscle use. Abdomen--normal bowel sounds and soft, nontender and nondistended, no hernias or masses, no organomegaly. Extremities--no cyanosis, clubbing or edema. There are good distal pulses b/l. Dermatologic--normal skin turgor, normal color, warm and dry, no abnormal lymph nodes, no rash. Neurologic--cranial nerves II through XII grossly intact, motor and sensory examination normal, vestibular function normal. Rheumatologic--normal range of motion, nontender, muscles and joints. Psychiatric--normal affect. Diagnostics Laboratory Results Results Past 24 Hours Test 11/07/16 18:00 11/07/16 18:06 11/07/16 20:08 11/07/16 22:54 Range/Units White Blood Count 6.21 4.8-10.8 K/uL Red Blood Count 3.84 4.2-5.4 M/uL Hemoglobin 10.5 12.0-16.0 g/dL Hematocrit 31.8 37-47 % Mean Corpuscular Volume 82.8 80-100 fL Mean Corpuscular Hemoglobin 27.3 25-34 pg Mean Corpuscular Hemoglobin Concent 33.0 32-36 g/dl Platelet Count 195 130-400 K/uL Mean Platelet Volume 8.6 7.4-10.4 fL Neutrophils (%) (Auto) 36.6 % Lymphocytes (%) (Auto) 35.4 % Monocytes (%) (Auto) 27.5 % Eosinophils (%) (Auto) 0.0 % Basophils (%) (Auto) 0.2 % Neutrophils # (Auto) 2.27 1.4-6.5 K/uL Lymphocytes # (Auto) 2.20 1.2-3.4 K/uL Monocytes # (Auto) 1.71 0.11-0.59 K/uL Eosinophils # (Auto) 0.00 0-0.5 K/uL Basophils # (Auto) 0.01 0-0.2 K/uL RDW Standard Deviation 47.5 36.4-46.3 fL RDW Coefficient of Variation 15.7 11.5-14.5 % Immature Granulocyte % (Auto) 0.3 % Immature Granulocyte # (Auto) 0.02 0.00-0.02 K/uL Prothrombin Time 11.4 9.0-12.0 SECONDS Prothromb Time International Ratio 1.1 0.9-1.1 Activated Partial Thromboplast Time 30.0 21.0-31.0 SECONDS Partial Thromboplastin Ratio 1.2 Sodium Level 135 136-145 mmol/L Potassium Level 3.6 3.5-5.1 mmol/L Chloride Level 101 98-107 mmol/L Carbon Dioxide Level 22 21-32 mmol/L Anion Gap 12.0 3-11 mmol/L Blood Urea Nitrogen 25 7-18 mg/dl Creatinine 1.20 0.60-1.20 mg/dl Est Creatinine Clear Calc Drug Dose 51.4 ml/min Estimated GFR () 53.4 Estimated GFR (Non- 46.1 BUN/Creatinine Ratio 21.0 10-20 Random Glucose 143 70-99 mg/dl Calcium Level 8.4 8.5-10.1 mg/dl Total Bilirubin 0.3 0.2-1 mg/dl Aspartate Amino Transf (AST/SGOT) 183 15-37 U/L Alanine Aminotransferase (ALT/SGPT) 94 12-78 U/L Alkaline Phosphatase 31 45-117 U/L Total Protein 7.3 6.4-8.2 gm/dl Albumin 3.5 3.4-5.0 gm/dl Globulin 3.8 2.5-4.0 gm/dl Albumin/Globulin Ratio 0.9 0.9-2 Lipase 214 73-393 U/L Bedside Glucose 146 160 70-90 mg/dl Bedside Lactic Acid Venous 0.96 0.90-1.70 mmol/L Diagnostic Radiology Patient Name: CATHIE BRIZUELA Unit Number: [id number] Dictated: 11/06/16 1111 Transcribed: 11/06/16 1111 JA Printed Date/Time: [~ rep prt dt]/[~ rep prt tm] [~ rep ct labl] - [~ rep ct ivnm] [facility] [place] [address] Dictated: 11/06/16 1111 Transcribed: 11/06/16 1111 JA Printed Date/Time: [~ rep prt dt]/[~ rep prt tm] [~ rep ct labl] - [~ rep ct ivnm] CHEST 2 VIEWS ROUTINE CLINICAL HISTORY: Left lower chest pain, nausea and vomiting. COMPARISON STUDY: Chest radiograph July 25, 2016. FINDINGS: There is no pneumothorax or pleural effusion. Lung volumes are at the lower limits of normal. Cardiomediastinal silhouette is unremarkable. There is no evidence of pulmonary edema. Linear left lower lung opacity favors atelectasis. IMPRESSION: 1. No acute findings. 2. Linear left basilar opacity suggestive of atelectasis. Electronically signed by: Sumeet Durand M.D. 11/06/2016 11:13 AM Dictated Date/Time: 11/06/2016 11:11 AM The status of this report is Signed. Draft = Not yet reviewed or approved by Radiologist. Signed = Reviewed and approved by Radiologist. <AttendingPhy></AttendingPhy> <FamilyPhy>Moisés Saleem M.D.</FamilyPhy> < PrimaryPhy>Moisés Saleem M.D.</PrimaryPhy> <UnitNumber>[id number]</UnitNumber> < VisitNumber>[id number]</VisitNumber> <PatientName>CATHIE BRIZUELA</PatientName> <DateOfBirth>1945</DateOfBirth> <Location>[facility]</Location> <ServiceDate></ServiceDate> <MNE>ESINDI</MNE> <OrderingPhy>Ronal Caldwell D.O.</ OrderingPhy> <OrderingPhyMNE>f rep ord dr cowart</OrderingPhyMNE> <DictatingPhyMNE> f rep dict dr cowart</DictatingPhyMNE> <CCListMNE>f rep ct mne</CCListMNE> < AdmittingPhyMNE>f pt admit dr cowart</AdmittingPhyMNE> <AttendingPhyMNE>f pt attend dr cowart</AttendingPhyMNE> <ConsultingPhyMNE>f pt consult dr cowart</ConsultingPhyMNE> <FamilyPhyMNE>f pt fam dr cowart</FamilyPhyMNE> <OtherPhyMNE>f pt other dr cowart</OtherPhyMNE> < PrimaryPhyMNE>f pt prim care dr cowart</PrimaryPhyMNE> <ReferringPhyMNE>f pt referring dr cowart</ReferringPhyMNE> Impression Assessment and Plan Influenza, dehydration, progressive fatigue, with intractable nausea, vomiting and diarrhea--the patient will be admitted to the medical floor. She'll be placed on Tamiflu 75 mg by mouth twice a day, Zofran 4 mg IV every 6 hours when necessary, pantoprazole 40 mg IV daily, normal saline with potassium chloride 20 mEq 100 mils per hour, and a full liquid diet as tolerated. She was tentatively diagnosed with a possible left lower lobe infiltrate the previous ED visit, but on clinical examination there is no need for antibiotics. Hypertension--continue enteric-coated aspirin 81 mg by mouth daily. Hold ramipril 10 mg by mouth twice a day, HCTZ 25 mg by mouth daily. Continue hydralazine 10 mg by mouth 4 times a day with hold parameters, and change atenolol from 100 mg by mouth daily to 25 mg by mouth twice a day with hold parameters. Diabetes mellitus--change Lantus insulin 70 units subcutaneous at bedtime to 10 units subcutaneous at bedtime, and place on Accu-Cheks before meals and at bedtime with NovoLog coverage. We will hold metformin 250 mg by mouth twice a day. Vitamin B12 deficiency--continue cyanocobalamin 1000 g by mouth daily. Hypercholesterolemia--Crestor 20 mg by mouth at bedtime. Hypothyroidism--continue levothyroxine sodium at 125 g by mouth daily. Psoriatic arthritis--takes Remicade IV every 8 weeks, and is presently on hold until illness is resolved. Level of Care Med/Surg Advanced Directives Existing Advance Directive: No Existing Living Will: No Existing Power of Grinding Machine Operator Portable: No Resuscitation Status FULL RESUSCITATION VTE Prophylaxis VTE Risk Assessment Done? Y/N: Yes Risk Level: Moderate Given or contraindicated: SCD's Social Service Consult None Apply
[2016-11-08] MEDS: LEVOTHYROXINE 125 MCG TAB PO SCH (05:58)
[2016-11-08] MEDS: HydrALAZINE 10 MG TAB PO SCH ×4 (07:44→20:00)
[2016-11-08] MEDS: ASPIRIN 81 MG ECTAB PO SCH (07:44)
[2016-11-08] MEDS: CYANOCOBALAMIN 500 MCG TAB (VIT B-12) PO SCH (07:44)
[2016-11-08] MEDS: OSELTAMIVIR PHOSPHATE 75 MG CAP PO SCH ×2 (07:45→20:11)
[2016-11-08 08:04] LABS: INR 1.1 (0.9-1.1); PARTIAL THROMBOPLASTIN RATIO 1.1; PROTHROMBIN TIME (PATIENT) 11.3 SECONDS (9.0-12.0)
[2016-11-08 08:10] VITALS: BP 116/71; PULSE 58; TEMP 36.6; O2SAT 91
[2016-11-08 08:10] LABS: MEAN CELL VOLUME 83.3 fL (80-100); MEAN CORPUSCULAR HGB CONC 32.4 g/dl (32-36); MEAN PLATELET VOLUME 9.1 fL (7.4-10.4); PLATELET COUNT 152 K/uL (130-400); RED BLOOD COUNT 3.48 M/uL (4.2-5.4); WHITE BLOOD COUNT 2.84 K/uL (4.8-10.8)
[2016-11-08 08:14] LABS: BLOOD UREA NITROGEN 19 mg/dl (7-18); BUN/CREATININE RATIO 18.9 (10-20); CALCIUM 7.8 mg/dl (8.5-10.1); CARBON DIOXIDE 21 mmol/L (21-32); CHLORIDE 108 mmol/L (98-107); GLUCOSE 131 mg/dl (70-99); MAGNESIUM 1.8 mg/dl (1.8-2.4); POTASSIUM 3.6 mmol/L (3.5-5.1); SODIUM 140 mmol/L (136-145)
[2016-11-08 08:17] LABS: ALKALINE PHOSPHATASE 29 U/L (45-117); ALT/SGPT 83 U/L (12-78); AST/SGOT 147 U/L (15-37)
[2016-11-08 08:46] LABS: BASO % 0.4 %; BASO ABS # 0.01 K/uL (0-0.2); COMPLETE YES; EOS % 0.4 %; IG% 0.4 %; LYMPH % 45.4 %; LYMPH ABS # 1.29 K/uL (1.2-3.4); MONO % 20.8 %; NEUT % 32.6 %
--- NOTE | 2016-11-08 11:23 | Progress Note ---
Subjective Date of Service: Nov 08, 2016. Subjective pt states she is feeling better but is not ready to advance diet,she otherwise has last had bowel movement that was loose and voluminous at 3 am Problem List Medical Problems: (1) Dehydration Status: Acute (2) Dehydration Status: Acute (3) Influenza Status: Acute (4) Influenza B Status: Acute (5) Intractable vomiting Status: Acute (6) LLL pneumonia Status: Acute (7) PNA (pneumonia) Status: Acute (8) Psoriatic arthritis Status: Acute (9) Tachycardia Status: Acute Review of Systems Constitutional: No chills, No fever Respiratory: No cough, No sputum, No wheezing Cardiac: No chest pain, No edema Abdomen: + diarrhea, + pain, No constipation, No nausea, No vomiting Female : No dysuria, No urinary frequency Objective Vital Signs Date Time Temp Pulse Resp B/P Pulse Ox O2 Delivery O2 Flow Rate FiO2 11/08/16 00:05 Room Air 11/07/16 21:55 36.8 66 16 118/57 97 11/07/16 21:45 36.9 96 18 121/68 97 Room Air 11/07/16 21:32 66 16 118/57 97 Room Air 11/07/16 20:00 79 16 118/57 97 Room Air 11/07/16 20:00 36.8 11/07/16 17:53 36.5 52 20 107/63 96 Room Air Physical Exam General Appearance: WD/WN, + mild distress Neck: supple, no JVD Respiratory/Chest: chest non-tender, lungs clear, normal breath sounds Cardiovascular: regular rate, rhythm, no murmur Abdomen: normal bowel sounds, soft, + guarding, + tenderness Extremities: no pedal edema, no calf tenderness Neurologic/Psychiatric: alert, oriented x 3 Laboratory Results Last 24 Hours Test 11/07/16 18:00 11/07/16 18:06 11/07/16 20:08 11/07/16 22:54 White Blood Count 6.21 K/uL Red Blood Count 3.84 M/uL Hemoglobin 10.5 g/dL Hematocrit 31.8 % Mean Corpuscular Volume 82.8 fL Mean Corpuscular Hemoglobin 27.3 pg Mean Corpuscular Hemoglobin Concent 33.0 g/dl Platelet Count 195 K/uL Mean Platelet Volume 8.6 fL Neutrophils (%) (Auto) 36.6 % Lymphocytes (%) (Auto) 35.4 % Monocytes (%) (Auto) 27.5 % Eosinophils (%) (Auto) 0.0 % Basophils (%) (Auto) 0.2 % Neutrophils # (Auto) 2.27 K/uL Lymphocytes # (Auto) 2.20 K/uL Monocytes # (Auto) 1.71 K/uL Eosinophils # (Auto) 0.00 K/uL Basophils # (Auto) 0.01 K/uL RDW Standard Deviation 47.5 fL RDW Coefficient of Variation 15.7 % Immature Granulocyte % (Auto) 0.3 % Immature Granulocyte # (Auto) 0.02 K/uL Prothrombin Time 11.4 SECONDS Prothromb Time International Ratio 1.1 Activated Partial Thromboplast Time 30.0 SECONDS Partial Thromboplastin Ratio 1.2 Sodium Level 135 mmol/L Potassium Level 3.6 mmol/L Chloride Level 101 mmol/L Carbon Dioxide Level 22 mmol/L Anion Gap 12.0 mmol/L Blood Urea Nitrogen 25 mg/dl Creatinine 1.20 mg/dl Est Creatinine Clear Calc Drug Dose 51.4 ml/min Estimated GFR () 53.4 Estimated GFR (Non- 46.1 BUN/Creatinine Ratio 21.0 Random Glucose 143 mg/dl Calcium Level 8.4 mg/dl Total Bilirubin 0.3 mg/dl Aspartate Amino Transf (AST/SGOT) 183 U/L Alanine Aminotransferase (ALT/SGPT) 94 U/L Alkaline Phosphatase 31 U/L Total Protein 7.3 gm/dl Albumin 3.5 gm/dl Globulin 3.8 gm/dl Albumin/Globulin Ratio 0.9 Lipase 214 U/L Bedside Glucose 146 mg/dl 160 mg/dl Bedside Lactic Acid Venous 0.96 mmol/L Test 11/08/16 07:05 11/08/16 07:21 Bedside Glucose 129 mg/dl Assessment and Plan 71 F failing outpt treatment for influenza A pneumonia Influenza, dehydration, Tamiflu 75 mg by mouth twice a day, initial thought of pneumonia maybe influenza antibiotics held by admission team CBC 11/08 shows low ANC and lower WBC this likely maybe viral influence on bone marrow will follow Nausea and vomiting , ivf, Zofran 4 mg IV every 6 hours when necessary, pantoprazole 40 mg IV daily, Hypertension-held ramipril 10 mg by mouth twice a day, HCTZ 25 mg by mouth daily on admission, Continue hydralazine 10 mg by mouth 4 times a day with hold parameters, and changed atenolol from 100 mg by mouth daily to 25 mg by mouth twice a day with hold parameters. Diabetes mellitus--reduce Lantus insulin 70 units subcutaneous at bedtime to 10 units subcutaneous at bedtime, hold metformin and use ssi Hypercholesterolemia--Crestor 20 mg by mouth at bedtime. Hypothyroidism- clinically stable on levothyroxine sodium at 125 g by mouth daily. Psoriatic arthritis--takes Remicade IV every 8 weeks, and is presently on hold until illness is resolved.
[2016-11-08 12:08] LABS: HEMATOCRIT 30.3 % (37-47); MEAN CELL VOLUME 83.2 fL (80-100); MEAN CORPUSCULAR HEMOGLOBIN 27.5 pg (25-34); MEAN PLATELET VOLUME 8.8 fL (7.4-10.4); PLATELET COUNT 156 K/uL (130-400); RED BLOOD COUNT 3.64 M/uL (4.2-5.4); WHITE BLOOD COUNT 3.24 K/uL (4.8-10.8)
[2016-11-08 12:33] LABS: BASO % 0.3 %; BASO ABS # 0.01 K/uL (0-0.2); COMPLETE YES; LYMPH % 48.5 %; LYMPH ABS # 1.57 K/uL (1.2-3.4); MONO % 22.5 %; NEUT % 28.7 %
[2016-11-08 13:28] VITALS: BP 128/72; PULSE 60
[2016-11-08 15:42] VITALS: BP 146/79; PULSE 63; TEMP 36.4; O2SAT 98
[2016-11-08 20:08] VITALS: BP 127/73; PULSE 59
[2016-11-08] MEDS ORDERED: ROSUVASTATIN CALCIUM 20 MG TAB PO SCH (22:00)
[2016-11-08 23:35] VITALS: BP 124/68; PULSE 59; TEMP 36.6; O2SAT 93
[2016-11-09] MEDS: NSS + 20MEQ KCL 1000ML 1,000 ML IV SCH (03:55)
[2016-11-09] MEDS: LEVOTHYROXINE 125 MCG TAB PO SCH (06:26)
[2016-11-09 06:44] LABS: BASO % 0.3 %; BASO ABS # 0.01 K/uL (0-0.2); COMPLETE YES; EOS % 1.8 %; IG% 0.3 %; LYMPH % 41.8 %; LYMPH ABS # 1.38 K/uL (1.2-3.4); MEAN CELL VOLUME 84.5 fL (80-100); MEAN CORPUSCULAR HEMOGLOBIN 27.5 pg (25-34); MEAN CORPUSCULAR HGB CONC 32.6 g/dl (32-36); MONO % 14.5 %; NEUT % 41.3 %; PLATELET COUNT 146 K/uL (130-400); RED BLOOD COUNT 3.67 M/uL (4.2-5.4)
[2016-11-09 06:51] LABS: INR 0.9 (0.9-1.1); PARTIAL THROMBOPLASTIN RATIO 1.2; PROTHROMBIN TIME (PATIENT) 10.1 SECONDS (9.0-12.0)
[2016-11-09 07:14] LABS: ALT/SGPT 69 U/L (12-78); AST/SGOT 94 U/L (15-37); BLOOD UREA NITROGEN 16 mg/dl (7-18); CARBON DIOXIDE 22 mmol/L (21-32); CHLORIDE 108 mmol/L (98-107); CREATININE 0.97 mg/dl (0.60-1.20); GLUCOSE 131 mg/dl (70-99); MAGNESIUM 1.8 mg/dl (1.8-2.4); POTASSIUM 3.9 mmol/L (3.5-5.1); SODIUM 142 mmol/L (136-145)
[2016-11-09 07:17] LABS: ALKALINE PHOSPHATASE 29 U/L (45-117)
[2016-11-09 07:54] VITALS: BP 137/79; PULSE 58; TEMP 36.6; O2SAT 95
[2016-11-09] MEDS: OSELTAMIVIR PHOSPHATE 75 MG CAP PO SCH ×2 (08:15→17:15)
[2016-11-09] MEDS: ASPIRIN 81 MG ECTAB PO SCH (08:16)
[2016-11-09] MEDS: HydrALAZINE 10 MG TAB PO SCH ×3 (08:16→17:15)
[2016-11-09] MEDS: CYANOCOBALAMIN 500 MCG TAB (VIT B-12) PO SCH (08:16)
[2016-11-09] MEDS: INSULIN ASPART 100 UNITS/ML 3 ML PEN SC SCH ×2 (09:06→13:19)
[2016-11-09] MEDS ORDERED: BENZONATATE 100MG CAP PO PRN (12:00)
--- NOTE | 2016-11-09 12:29 | DIAGNOSTIC IMAGING REPORT ---
CHEST 2 VIEWS ROUTINE HISTORY: cough, influenza COMPARISON: Chest 11/06/2016. FINDINGS: The heart is top normal in size. The upper lung zones are clear. No pneumothorax. No pleural effusions. Linear density at the left lung base favors subsegmental atelectasis. No new focal lung consolidations to suggest pneumonia. No evidence for pulmonary edema. IMPRESSION: Linear density at the left lung base favor subsegmental atelectasis or scarring. This is similar to the prior study. Electronically signed by: Richard Castro M.D. 11/09/2016 12:28 PM Dictated Date/Time: 11/09/2016 12:26 PM
[2016-11-09 13:09] VITALS: BP 129/81; PULSE 65
[2016-11-09 14:14] LABS: BASO % 0.3 %; BASO ABS # 0.01 K/uL (0-0.2); COMPLETE YES; HEMATOCRIT 31.8 % (37-47); IG% 0.3 %; MEAN CELL VOLUME 84.4 fL (80-100); MEAN CORPUSCULAR HEMOGLOBIN 27.6 pg (25-34); MEAN CORPUSCULAR HGB CONC 32.7 g/dl (32-36); MEAN PLATELET VOLUME 9.2 fL (7.4-10.4); MONO % 12.4 %; PLATELET COUNT 158 K/uL (130-400); RED BLOOD COUNT 3.77 M/uL (4.2-5.4); WHITE BLOOD COUNT 3.54 K/uL (4.8-10.8)
[2016-11-09 15:58] VITALS: BP 129/75; PULSE 61; TEMP 36.4; O2SAT 98
[2016-11-09] MEDS ORDERED: TNR25 PO (16:32)
[2016-11-09] MEDS ORDERED: TMF75 PO (16:32)
[2016-11-09] MEDS ORDERED: BENZ100C7 PO (16:32)
[2016-11-09 16:49] VITALS: BP 129/75; PULSE 61; TEMP 36.4; O2SAT 98
[2016-11-09] MEDS ORDERED: INSDGIPEN SC (16:49)
--- NOTE | 2016-11-09 16:57 | Discharge Instructions ---
Discharge Instructions Admission Reason for Admission: Influenza A infection Discharge Discharge Diagnosis / Problem: Influenza A infection - resolving. Abnormal CBC. Discharge Goals Goal(s): Learn about illness, Diagnostic testing, Therapeutic intervention Activity Recommendations Activity Limitations: as noted below Lifting Limitations: gradually increase as tolerated Exercise/Sports Limitations: gradually increase as tolerated . Instructions / Follow-Up Instructions / Follow-Up From Dr. Canela - 1. Influenza A infection - * you are likely not contagious at this time but would suggest that you limit heavy contact with family/friends for the next 2-3 days * take tamiflu twice daily for an additional 2.5 days; start this tomorrow AM * you may take tessalon pearles every 8 hrs as needed for cough * if you develop any fever over 100.5 degrees, worsening cough, shortness of breath, etc please call your family doctor right away or return to [facility] 2. Abnormal liver tests - * these improved during your stay * have Dr. Saleem recheck your liver tests later this week * in the meantime avoid taking your crestor and tylenol 3. Abnormal CBC - * your total WBC (white blood cell count) was mildly low * this can be the result of a viral infection or from a medication * either way it is only mildly low and over the last 3 days it has been stable * with that said I recommend that you have Dr. Saleem repeat your CBC at the time of your office visit * also, if someone is ill, please have that person avoid you until you know that your CBC has normalized 4. Blood pressure - * stop your HCTZ (hydrochlorothiazide) * reduce your atenolol to 25mg once daily 5. Diabetes - * reduce your lantus to 35 units at bedtime * we may have to increase the dose in the near future, however, if your sugars run high; please show your blood sugars to Dr. Saleem * continue your novolog as previous (sliding scale plus the carb correction ratio of 1 to 10) Current Hospital Diet Patient's current hospital diet: Diabetes Type 2 Diet Discharge Diet Recommended Diet: Diabetes Type 2 Diet Procedures Procedures Performed: chest x-ray without evidence of pneumonia Pending Studies Studies pending at discharge: yes List of pending studies: Coamo antibody titer (mono is a virus) CMV antibody titer (CMV is a virus) Parvovirus antibody titer (Parvo is also a virus) Medical Emergencies . Who to Call and When: Medical Emergencies: If at any time you feel your situation is an emergency, please call 911 immediately. . Non-Emergent Contact Non-Emergency issues call your: Primary Care Provider Call Non-Emergent contact if: temperature is above 100.5, your pain is concerning you, you have any medication questions . . "Provider Documentation" section prepared by Boni Canela. VTE Core Measure Inpt VTE Proph given/why not?: SCD's
--- NOTE | 2016-11-11 06:28 | EDITING REQUIRED CODING QUERY ---
CODING QUERY To promote full compliance with coding requirements relating to patient care, provider participation is requested in all cases of music artist uncertainty. Please assist us with the question(s) below: Coding Question(s): Dr. Canela, Please clarify the following diagnoses: Was the nausea, vomiting, and diarrhea due to: ( x ) Influenza A ( ) Other cause, please specify Also, in the H&P, Dr. Stubbs noted, " She was tentatively diagnosed with a possible left lower lobe infiltrate the previous E D visit, but on clinical examination there is no need for antibiotics." Please clarify if the pneumonia was: ( ) present and treated during this encounter ( x ) ruled out ( ) other, please explain Physician's Response(s): Thank you for your time, AIMEE Chu, PL SQL PROGRAMMER
--- NOTE | 2016-11-12 23:02 | Discharge Summary ---
Discharge Summary Admission Date: Nov 07, 2016 at 21:00 Discharge Date: Nov 09, 2016 Discharge Disposition: Home Principal Diagnosis: influenza A infection Problems/Secondary Diagnoses: 1. leukopenia with mild neutropenia 2. acute kidney injury - resolved 3. abnormal LFTs - improving 4. T2DM 5. HTN 6. Hyperlipidemia 7. Hypothyroidism 8. Psoriatic arthritis 9. anemia of chronic disease Procedures: chest x-ray - atelectasis LLL only Medication Reconciliation New Medications: Benzonatate (Benzonatate) 100 Mg Cap 100 MG PO TID PRN for cough, #30 CAP 0 Refills Oseltamivir Phosphate (Tamiflu) 75 Mg Cap 75 MG PO BID, #5 CAP 0 Refills start evening of 11/09/16 Changed Medications: Atenolol (Atenolol) 25 Mg Tab 25 MG PO DAILY, #30 2 Refills (Changed from: Atenolol (Tenormin) 100 Mg Tab 100 Mg PO DAILY) Insulin Glargine (Lantus Solostar) 100 Unit/Ml Inj 35 UNITS SC HS, #1 (Changed from: 70 UNITS) Continued Medications: Aspirin (Aspirin Ec) 81 Mg Tab 81 MG PO DAILY Cranberry-Vitamin C-Vitamin E (Cranberry) 1 Cap Cap 1 CAP PO DAILY Cyanocobalamin (Vitamin B-12) 1,000 Mcg Tab 1000 MCG PO DAILY, TAB Hydralazine Hcl (Apresoline) 10 Mg Tab 10 MG PO QID, TAB Infliximab (Remicade) 100 Mg/10 Ml Inj 1 DOSE IV [id number] INFUSION 5MG/KG EVERY 8 WEEKS Insulin Aspart (Novolog Flexpen) 100 Units/Ml Inj 1 DOSE SC UD COVERAGE DIRECTED BY SLIDING SCALE Levothyroxine Sodium (Synthroid) 125 Mcg Tab 125 MCG PO DAILY, TAB Metformin Hcl (Glucophage) 500 Mg Tab 250 MG PO BID, TAB TAKE IN MIDDLE OF MEALS Multivitamin (Multivitamin) Tab 1 TAB PO DAILY, TAB Ondansetron Hcl (Zofran) 4 Mg Tab 4 MG PO Q6H PRN for Nausea, TAB Ramipril (Altace) 10 Mg Cap 10 MG PO BID, CAP Discontinued Medications: Acetaminophen (Tylenol) 500 Mg Tab 1000 MG PO UD PRN for Pain or Fever, TAB TAKE PER PACKAGE DIRECTIONS Hydrochlorothiazide (Hctz) 25 Mg Tab 25 MG PO DAILY, TAB Levofloxacin (Levaquin) 750 Mg Tab 750 MG PO DAILY, #5 TAB Rosuvastatin Calcium (Crestor) 20 Mg Tab 20 MG PO HS, TAB Discharge Exam Physical Exam: General Appearance: WD/WN, no apparent distress ENT: pharynx normal Neck: no JVD Respiratory/Chest: lungs clear, no respiratory distress, no accessory muscle use Cardiovascular: regular rate, rhythm, no gallop, no murmur, normal peripheral pulses Abdomen / GI: normal bowel sounds, non tender, soft, no organomegaly Extremities: no pedal edema Neurologic/Psychiatric: alert, oriented x 3 Skin: no rash Lymphatic: no adenopathy (cervical) Hospital Course HISTORY OF PRESENT ILLNESS: The patient is a 71-year-old female who initially presented to the emergency department 32 hours prior to admission with symptoms that led to a diagnosis of influenza A, possible pneumonia and dehydration. She was discharged on Tamiflu and Levaquin. However, she continued with worsening flu symptoms, and developed new symptoms of diarrhea with nausea and abdominal discomfort. HOSPITAL COURSE: The patient's short hospital stay was marked by one of rapid improvement in all presenting symptoms. She had no fever, vitals remained stable, and nausea/emesis/diarrhea resolved. Acute kidney injury resolved with IV hydration. Discharge creatinine was 0.9. She was eating well prior to discharge. She was continued on tamiflu for influenza A but antibiotics were stopped as there was no signs of a complicating bacterial process. Ms. Andrew's CBC was notable for leukopenia and neutropenia. The exact etiology of this was unknown but medication side effect from recently utilized levaquin, a viral process/bone marrow suppression, or another etiology were all possibilities. Her absolute neutrophil count ("ANC") was about 1300 on day of discharge and was stable at this level for 24 hours. In addition to the WBC count abnormalities she also had abnormal LFTs. Fortunately these, too, improved while here. The exact etiology of the abnormal LFTs was also uncertain. In the event this was a viral process that caused both the CBC and LFT abnormalities titers for EBV, CMV, and parvovirus were sent prior to her departure. These were pending at discharge. At discharge the following were recommended: 1. completion of her tamiflu course 2. holding of her statin agent due to the elevated LFTs 3. avoidance of sick contacts in light of her mild neutropenia 4. follow-up in 3-4 days with PCP so that a repeat CBC could be obtained 5. LOWERING of her lantus to 35 units nightly as she had excellent glycemic control on this dose while hospitalized 6. DISCONTINUATION of her HCTZ due to low / low-normal BPs 7. LOWERING of her atenolol dose to 25mg daily due to low / low-normal BPs Total Time Spent: Greater than 30 minutes This includes examination of the patient, discharge planning, medication reconciliation, and communication with other providers. Discharge Instructions Please refer to the electronic Patient Visit Report (Discharge Instructions) for additional information. Follow-Up Moisés Saleem MD - PCP - on Wednesday11/13/16 Additional Copies To Moisés Saleem M.D.
[2016-11-12 23:37] LABS: CYTOMEGALOVIRUS IGG AB 3.34; EBV EARLY ANTIGEN AB <0.91 INDEX; EPSTEIN BARR VIR CAPSID IGG 2.06 INDEX; PARVOVIRUS IgG INDEX 4.3 (<0.9); PARVOVIRUS IgM INDEX 0.2 (<0.9)
== END 2016-11-09 17:58 | disposition home or self-care (01) | DRG 865 ==
LOC: ENRESERVDT → ENRESERVTM → C.EDB 17:48 → C.MS4W 21:00
PROVIDERS: ADMIT Hospitalist; ATTEND Internal Medicine
DX: J10.2 Influenza due to other identified influenza virus with gastrointestinal manifestations (principal); J18.9 Pneumonia, unspecified organism; E86.0 Dehydration; D72.819 Decreased white blood cell count, unspecified; R11.2 Nausea with vomiting, unspecified; R19.7 Diarrhea, unspecified; I10 Essential (primary) hypertension; E11.9 Type 2 diabetes mellitus without complications; E78.00 Pure hypercholesterolemia, unspecified; E03.9 Hypothyroidism, unspecified; L40.50 Arthropathic psoriasis, unspecified; E53.8 Deficiency of other specified B group vitamins; Z79.82 Long term (current) use of aspirin; Z79.4 Long term (current) use of insulin; Z79.84 Long term (current) use of oral hypoglycemic drugs; Z79.899 Other long term (current) drug therapy; R00.0 Tachycardia, unspecified; Z88.1 Allergy status to other antibiotic agents; Z88.2 Allergy status to sulfonamides; Z88.6 Allergy status to analgesic agent; Z88.8 Allergy status to other drugs, medicaments and biological substances; Z80.9 Family history of malignant neoplasm, unspecified; Z83.3 Family history of diabetes mellitus; Z82.49 Family history of ischemic heart disease and other diseases of the circulatory system

== ENCOUNTER → 2016-11-13 | Outpatient (CLI) | payer OTHER ==
[~2016-11-13] MED LIST changes: -ACET-1256 PO; -ATEN-173 PO; +BENZ100C7 PO; -HYDR25TA4 PO; -LEVO1TAB35 PO; -NVLG SQ; +NVLGI/PEN SC; +ONDA4TAB46 PO; -PROC1TAB5 PO; -ROSU20TA PO; +TMF75 PO; +TNR25 PO
[2016-11-13 13:28] LABS: BASO % 0.4 %; BASO ABS # 0.02 K/uL (0-0.2); COMPLETE YES; EOS % 2.3 %; HEMATOCRIT 31.2 % (37-47); IG% 0.2 %; LYMPH % 32.4 %; LYMPH ABS # 1.57 K/uL (1.2-3.4); MEAN CELL VOLUME 86.9 fL (80-100); MEAN CORPUSCULAR HEMOGLOBIN 30.4 pg (25-34); MEAN CORPUSCULAR HGB CONC 34.9 g/dl (32-36); MEAN PLATELET VOLUME 9.3 fL (7.4-10.4); MONO % 12.8 %; NEUT % 51.9 %; PLATELET COUNT 201 K/uL (130-400); RED BLOOD COUNT 3.59 M/uL (4.2-5.4); WHITE BLOOD COUNT 4.84 K/uL (4.8-10.8)
[2016-11-13 13:39] LABS: ALT/SGPT 43 U/L (12-78); BLOOD UREA NITROGEN 12 mg/dl (7-18); BUN/CREATININE RATIO 13.6 (10-20); CALCIUM 8.5 mg/dl (8.5-10.1); CARBON DIOXIDE 23 mmol/L (21-32); CHLORIDE 106 mmol/L (98-107); GLUCOSE 114 mg/dl (70-99); POTASSIUM 3.8 mmol/L (3.5-5.1); SODIUM 140 mmol/L (136-145)
[2016-11-13 13:42] LABS: ALKALINE PHOSPHATASE 31 U/L (45-117); AST/SGOT 31 U/L (15-37)
== END | disposition home or self-care (01) ==
LOC: C.LABMFLN 11:40
PROVIDERS: ATTEND Family Medicine
DX: D70.9 Neutropenia, unspecified (principal); R74.0 Nonspecific elevation of levels of transaminase and lactic acid dehydrogenase [LDH]; J10.1 Influenza due to other identified influenza virus with other respiratory manifestations

== ENCOUNTER → 2016-12-02 | Outpatient (CLI) | payer OTHER ==
[2016-12-02 13:35] LABS: ESTIMATED AVERAGE GLUCOSE 143 mg/dl; HA1C FLAG Normal (Normal)
[2016-12-02 14:13] LABS: AST/SGOT 23 U/L (15-37); BLOOD UREA NITROGEN 18 mg/dl (7-18); BUN/CREATININE RATIO 18.9 (10-20); CALCIUM 8.7 mg/dl (8.5-10.1); CARBON DIOXIDE 24 mmol/L (21-32); CHLORIDE 104 mmol/L (98-107); CREATININE 0.95 mg/dl (0.60-1.20); GLUCOSE 137 mg/dl (70-99); HDL CHOLESTEROL 58 mg/dl; POTASSIUM 3.8 mmol/L (3.5-5.1); SODIUM 138 mmol/L (136-145)
[2016-12-02 14:25] LABS: ALKALINE PHOSPHATASE 41 U/L (45-117); ALT/SGPT 29 U/L (12-78); CHOLESTEROL 168 mg/dl (0-200); CHOLESTEROL/HDL RATIO 2.9; LDL CHOLESTEROL CALCULATED 72 mg/dl; THYROID STIMULATING HORMONE 0.764 uIu/ml (0.300-4.500); TRIGLYCERIDES 189 mg/dl (0-150); VERY LOW DENSITY LIPOPROT CALC 38 mg/dl
== END | disposition home or self-care (01) ==
LOC: C.LABMFLN 10:40
PROVIDERS: ATTEND Family Medicine
DX: I10 Essential (primary) hypertension (principal); E78.5 Hyperlipidemia, unspecified; E11.9 Type 2 diabetes mellitus without complications; E03.9 Hypothyroidism, unspecified

== ENCOUNTER → 2016-12-14 | Outpatient (CLI) | payer OTHER ==
[2016-12-14 13:37] LABS: BASO % 0.4 %; BASO ABS # 0.03 K/uL (0-0.2); COMPLETE YES; EOS % 1.6 %; IG% 0.1 %; LYMPH % 29.9 %; LYMPH ABS # 2.47 K/uL (1.2-3.4); MEAN CELL VOLUME 88.9 fL (80-100); MEAN CORPUSCULAR HEMOGLOBIN 31.9 pg (25-34); MEAN CORPUSCULAR HGB CONC 35.9 g/dl (32-36); MEAN PLATELET VOLUME 9.5 fL (7.4-10.4); MONO % 9.6 %; NEUT % 58.4 %; PLATELET COUNT 267 K/uL (130-400); WHITE BLOOD COUNT 8.25 K/uL (4.8-10.8)
[2016-12-14 13:55] LABS: ALT/SGPT 32 U/L (12-78); AST/SGOT 21 U/L (15-37); CREATININE 0.95 mg/dl (0.60-1.20)
[2016-12-14 13:58] LABS: ALKALINE PHOSPHATASE 36 U/L (45-117)
== END | disposition home or self-care (01) ==
LOC: C.LABMFLN 08:26
PROVIDERS: ATTEND Internal Medicine Rheumatology
DX: Z79.899 Other long term (current) drug therapy (principal)

== ENCOUNTER → 2017-01-20 | Outpatient (CLI) | payer OTHER ==
[2017-01-20 13:36] LABS: BLOOD UREA NITROGEN 31 mg/dl (7-18); BUN/CREATININE RATIO 31.2 (10-20); CARBON DIOXIDE 28 mmol/L (21-32); CHLORIDE 103 mmol/L (98-107); CREATININE 0.98 mg/dl (0.60-1.20); GLUCOSE 124 mg/dl (70-99); MAGNESIUM 1.8 mg/dl (1.8-2.4); POTASSIUM 3.8 mmol/L (3.5-5.1); SODIUM 138 mmol/L (136-145)
[2017-01-20 13:46] LABS: CALCIUM 9.2 mg/dl (8.5-10.1)
== END | disposition home or self-care (01) ==
LOC: C.LABMFLN 08:44
PROVIDERS: ATTEND Family Medicine
DX: I10 Essential (primary) hypertension (principal)

== ENCOUNTER → 2017-02-17 | Outpatient (CLI) | payer OTHER ==
[2017-02-17 13:19] LABS: BASO % 0.5 %; BASO ABS # 0.03 K/uL (0-0.2); COMPLETE YES; EOS % 2.6 %; HEMATOCRIT 33.7 % (37-47); IG% 0.2 %; LYMPH ABS # 1.83 K/uL (1.2-3.4); MEAN CELL VOLUME 88.7 fL (80-100); MEAN CORPUSCULAR HEMOGLOBIN 30.5 pg (25-34); MEAN CORPUSCULAR HGB CONC 34.4 g/dl (32-36); MEAN PLATELET VOLUME 9.4 fL (7.4-10.4); MONO % 11.8 %; NEUT % 54.9 %; PLATELET COUNT 262 K/uL (130-400)
[2017-02-17 14:36] LABS: ALT/SGPT 39 U/L (12-78); AST/SGOT 26 U/L (15-37)
[2017-02-17 14:39] LABS: ALKALINE PHOSPHATASE 36 U/L (45-117)
== END | disposition home or self-care (01) ==
LOC: C.LABMFLN 08:24
PROVIDERS: ATTEND Internal Medicine Rheumatology
DX: M85.80 Other specified disorders of bone density and structure, unspecified site (principal)

== ENCOUNTER → 2017-03-30 | Outpatient (CLI) | payer OTHER | END | disposition home or self-care (01) | LOC: C.LABMFLN 08:17 | PROVIDERS: ATTEND Physician Assistant | DX: R35.0 Frequency of micturition (principal) ==

== ENCOUNTER → 2017-04-09 | Outpatient (CLI) | payer OTHER ==
[2017-04-09 13:15] LABS: BASO % 0.5 %; BASO ABS # 0.03 K/uL (0-0.2); COMPLETE YES; EOS % 2.8 %; HEMATOCRIT 30.5 % (37-47); IG% 0.3 %; LYMPH % 32.2 %; LYMPH ABS # 1.96 K/uL (1.2-3.4); MEAN CELL VOLUME 93.3 fL (80-100); MEAN CORPUSCULAR HEMOGLOBIN 33.9 pg (25-34); MEAN CORPUSCULAR HGB CONC 36.4 g/dl (32-36); MONO % 11.8 %; NEUT % 52.4 %; PLATELET COUNT 251 K/uL (130-400); RED BLOOD COUNT 3.27 M/uL (4.2-5.4); WHITE BLOOD COUNT 6.08 K/uL (4.8-10.8)
[2017-04-09 15:24] LABS: ALT/SGPT 37 U/L (12-78)
[2017-04-09 15:27] LABS: ALKALINE PHOSPHATASE 30 U/L (45-117); AST/SGOT 29 U/L (15-37)
== END ==
LOC: C.LABMFLN 08:18
PROVIDERS: ATTEND Internal Medicine Rheumatology
DX: L40.50 Arthropathic psoriasis, unspecified (principal); Z79.899 Other long term (current) drug therapy

== ENCOUNTER → 2017-05-18 | Outpatient (CLI) | payer OTHER ==
[2017-05-18 13:47] LABS: BASO % 0.4 %; BASO ABS # 0.03 K/uL (0-0.2); COMPLETE YES; EOS % 2.3 %; HEMATOCRIT 35.3 % (37-47); IG% 0.1 %; LYMPH % 34.9 %; LYMPH ABS # 2.56 K/uL (1.2-3.4); MEAN CELL VOLUME 92.4 fL (80-100); MEAN CORPUSCULAR HEMOGLOBIN 31.9 pg (25-34); MEAN CORPUSCULAR HGB CONC 34.6 g/dl (32-36); MEAN PLATELET VOLUME 9.6 fL (7.4-10.4); MONO % 11.6 %; NEUT % 50.7 %; PLATELET COUNT 248 K/uL (130-400); RED BLOOD COUNT 3.82 M/uL (4.2-5.4); WHITE BLOOD COUNT 7.34 K/uL (4.8-10.8)
[2017-05-18 13:48] LABS: ESTIMATED AVERAGE GLUCOSE 154 mg/dl; HA1C FLAG Normal (Normal)
[2017-05-18 15:14] LABS: ALT/SGPT 41 U/L (12-78); AST/SGOT 27 U/L (15-37); BLOOD UREA NITROGEN 22 mg/dl (7-18); BUN/CREATININE RATIO 23.1 (10-20); CALCIUM 9.4 mg/dl (8.5-10.1); CARBON DIOXIDE 26 mmol/L (21-32); CHLORIDE 104 mmol/L (98-107); CREATININE 0.94 mg/dl (0.60-1.20); GLUCOSE 164 mg/dl (70-99); HDL CHOLESTEROL 54 mg/dl; SODIUM 139 mmol/L (136-145)
[2017-05-18 15:24] LABS: ALB/GLOB RATIO 0.9 (0.9-2); ALKALINE PHOSPHATASE 37 U/L (45-117); CHOLESTEROL 154 mg/dl (0-200); CHOLESTEROL/HDL RATIO 2.9; LDL CHOLESTEROL CALCULATED 54 mg/dl; THYROID STIMULATING HORMONE 0.948 uIu/ml (0.300-4.500); TRIGLYCERIDES 228 mg/dl (0-150); VERY LOW DENSITY LIPOPROT CALC 46 mg/dl
== END | disposition home or self-care (01) ==
LOC: C.LABMFLN 08:20
PROVIDERS: ATTEND Family Medicine
DX: I10 Essential (primary) hypertension (principal); E11.9 Type 2 diabetes mellitus without complications; E03.9 Hypothyroidism, unspecified; D70.9 Neutropenia, unspecified

== ENCOUNTER → 2017-06-16 | Outpatient (CLI) | payer OTHER ==
[2017-06-16 13:22] LABS: BASO % 0.4 %; BASO ABS # 0.03 K/uL (0-0.2); COMPLETE YES; EOS % 2.9 %; HEMATOCRIT 32.1 % (37-47); IG% 0.1 %; LYMPH % 34.8 %; LYMPH ABS # 2.36 K/uL (1.2-3.4); MEAN CORPUSCULAR HEMOGLOBIN 32.8 pg (25-34); MEAN CORPUSCULAR HGB CONC 35.2 g/dl (32-36); MEAN PLATELET VOLUME 9.2 fL (7.4-10.4); MONO % 12.4 %; NEUT % 49.4 %; PLATELET COUNT 237 K/uL (130-400); RED BLOOD COUNT 3.45 M/uL (4.2-5.4); WHITE BLOOD COUNT 6.78 K/uL (4.8-10.8)
[2017-06-16 14:24] LABS: ALT/SGPT 39 U/L (12-78); AST/SGOT 32 U/L (15-37); CREATININE 0.98 mg/dl (0.60-1.20)
== END | disposition home or self-care (01) ==
LOC: C.LABMFLN 07:07
PROVIDERS: ATTEND Internal Medicine Rheumatology
DX: Z51.81 Encounter for therapeutic drug level monitoring (principal); Z79.899 Other long term (current) drug therapy

== ENCOUNTER → 2017-10-22 | Outpatient (CLI) | payer OTHER ==
[2017-10-22 08:47] LABS: BASO % 0.7 %; BASO ABS # 0.05 K/uL (0-0.2); EOS % 3.6 %; EOS ABS # 0.24 K/uL (0-0.5); HEMATOCRIT 33.8 % (37-47); HEMOGLOBIN 11.6 g/dL (12.0-16.0); IG# 0.01 K/uL (0.00-0.02); LYMPH % 30.7 %; LYMPH ABS # 2.06 K/uL (1.2-3.4); MEAN CELL VOLUME 86.9 fL (80-100); MEAN CORPUSCULAR HEMOGLOBIN 29.8 pg (25-34); MEAN CORPUSCULAR HGB CONC 34.3 g/dl (32-36); MEAN PLATELET VOLUME 8.8 fL (7.4-10.4); MONO % 12.6 %; MONO ABS # 0.85 K/uL (0.11-0.59); NEUT % 52.3 %; NEUT ABS # 3.51 K/uL (1.4-6.5); PLATELET COUNT 247 K/uL (130-400); RED CELL DISTRIBUTION WIDTH CV 14.1 % (11.5-14.5); RED CELL DISTRIBUTION WIDTH SD 44.4 fL (36.4-46.3); WHITE BLOOD COUNT 6.72 K/uL (4.8-10.8)
[2017-10-22 09:05] LABS: ALBUMIN 3.6 gm/dl (3.4-5.0); ALT/SGPT 45 U/L (12-78); CREATININE 1.09 mg/dl (0.60-1.20)
[2017-10-22 09:08] LABS: ALKALINE PHOSPHATASE 38 U/L (45-117); AST/SGOT 47 U/L (15-37); TOTAL PROTEIN 7.8 gm/dl (6.4-8.2)
== END | disposition home or self-care (01) ==
LOC: C.LABSPEC 08:26
PROVIDERS: ATTEND Internal Medicine Rheumatology
DX: L40.50 Arthropathic psoriasis, unspecified (principal); Z51.81 Encounter for therapeutic drug level monitoring; Z79.899 Other long term (current) drug therapy

== ENCOUNTER → 2017-11-23 | Outpatient (CLI) | payer OTHER ==
[2017-11-23 13:05] LABS: HEMOGLOBIN A1C 6.8 % (4.5-5.6)
[2017-11-23 13:43] LABS: ALBUMIN 3.7 gm/dl (3.4-5.0); ALT/SGPT 41 U/L (12-78); BLOOD UREA NITROGEN 27 mg/dl (7-18); CALCIUM 9.1 mg/dl (8.5-10.1); CARBON DIOXIDE 25 mmol/L (21-32); CHOLESTEROL 164 mg/dl (0-200); CREATININE 1.02 mg/dl (0.60-1.20); GLUCOSE 149 mg/dl (70-99); SODIUM 136 mmol/L (136-145)
[2017-11-23 13:53] LABS: ALKALINE PHOSPHATASE 34 U/L (45-117); AST/SGOT 31 U/L (15-37); LDL CHOLESTEROL CALCULATED 75 mg/dl; TOTAL PROTEIN 7.7 gm/dl (6.4-8.2)
== END | disposition home or self-care (01) ==
LOC: C.LABMFLN 07:30
PROVIDERS: ATTEND Family Medicine
DX: I10 Essential (primary) hypertension (principal); E78.5 Hyperlipidemia, unspecified; E11.9 Type 2 diabetes mellitus without complications; E03.9 Hypothyroidism, unspecified

== ENCOUNTER → 2018-01-31 | Day surgery (SDC) | payer OTHER ==
[2018-01-20 10:04] VITALS: BMI 42.0
[~2018-01-31] VITALS: Ht 152.4 cm; Wt 99.5 kg
[~2018-01-31] MED LIST changes: -ALT/10 PO; +ASPCH81X PO; -ASPI81TA28 PO; +ATEN100T PO; -BENZ100C7 PO; +CHOL2000 PO; -CRAN1CAP15 PO; +CRANPOW PO; +CYAN100020 PO; -CYAN10005 PO; +HYDR25TA4 PO; -INSDGIPEN SC; +INSU100I23 SC; +LEVO125T5 PO; -LEVO125T72 PO; +LIDOCAINE HCL 2% 2 ML VIAL (20MG/ML) ONE; -ONDA4TAB46 PO; +PROPOFOL IV EMULSION 10 MG/ML 20 ML VIAL IV ONE; +RAMI10CA PO; +ROSU20TA PO; +SODIUM CHLORIDE 0.9% 500ML 500 ML IV ONE; -TMF75 PO; -TNR25 PO
[2018-01-31 08:08] VITALS: Ht 152.4 cm; Wt 99.5 kg
[2018-01-31 08:14] VITALS: TEMP 36.5
--- NOTE | 2018-01-31 08:41 | Endo History and Physical ---
History & Physical Date of Service: Jan 31, 2018. Chief Complaint: SCREENING Referring Physician: DR ANDREWS History of Present Illness 72 yo CF who presents for screening colonoscopy. Past Surgical History Hx Cardiac Surgery: No Hx Internal Defibrillator: No Hx Pacemaker: No Hx Abdominal Surgery: Yes (HYSTERECTOMY) Hx of Implantable Prosthesis: No Hx Post-Op Nausea and Vomiting: No Hx Cancer Surgery: No Hx Thoracic Surgery: No Hx Orthopedic: Yes (LEFT FOOT TOE SURGERY) Hx Urinary Tract Surgery: No Family History None Social History Smoking Status: Never Smoker Hx Substance Use: No Hx Alcohol Use: No Allergies Coded Allergies: Rosiglitazone (Verified Allergy, Severe, leg and arm swelling, heaviness in chest, 01/31/18) Acetaminophen (Unverified Allergy, Unknown, unknown, 01/31/18) Adhesives (Verified Allergy, Unknown, SKIN IRRITATION/BLISTERS, 01/31/18) Flurbiprofen (Verified Allergy, Unknown, nausea, muscle pain, pain in side , 01/31/18) Insulin Isophane (Verified Adverse Reaction, Intermediate, funny feeling in the morning, urinated more, dry mouth, 01/31/18) Amlodipine (Verified Adverse Reaction, Mild, nausea and dizziness, 01/31/18 ) Amoxicillin (Verified Adverse Reaction, Mild, nausea, diarrhea, 01/31/18) Cephalexin (Verified Adverse Reaction, Mild, diarrhea, vomiting, 01/31/18) Naproxen (Verified Adverse Reaction, Mild, interference with kidney function, 01/31/18) Nitrofurantoin (Verified Adverse Reaction, Mild, diarrhea,vomiting, ) Pioglitazone (Verified Adverse Reaction, Mild, dry mouth, 01/31/18) Propoxyphene (Verified Adverse Reaction, Mild, NAUSEA, DIZZINESS, 01/31/18) Sulfamethoxazole w/Trimethoprim (Verified Adverse Reaction, Mild, diarrhea and vomiting, 01/31/18) Sulindac (Verified Adverse Reaction, Mild, fast heart beat, 01/31/18) Current Medications Reported Home Medications Medications Dose Route/Sig Max Daily Dose Days Date Category Dose Instructions Multivitamin (Multivitamins) Tab 1 Tab PO DAILY 01/20/18 Reported [Cranberry] 3,600 Mg PO DAILY 01/20/18 Reported Vitamin D3 (Cholecalciferol) 2,000 Unit Cap 1 Cap PO DAILY 01/20/18 Reported Vitamin B12 (Cyanocobalamin) 1,000 Mcg Tab 1 Tab PO DAILY 01/20/18 Reported Remicade (Infliximab) 100 Mg/10 Ml Inj 1 Dose IV [id number] 01/20/18 Reported Aspirin Chewable (Aspirin) 81 Mg Chew 81 Mg PO QAM 01/20/18 Reported Levothyroxine Sodium 125 Mcg Tab 1 Tab PO QAM 01/20/18 Reported Crestor (Rosuvastatin Calcium) 20 Mg Tab 20 Mg PO HS 01/20/18 Reported Hctz (Hydrochlorothiazide) 25 Mg Tab 25 Mg PO QAM 01/20/18 Reported Apresoline (Hydralazine Hcl) 10 Mg Tab 10 Mg PO QID 01/20/18 Reported Tenormin (Atenolol) 100 Mg Tab 100 Mg PO QAM 01/20/18 Reported Ramipril 10 Mg Cap 1 Cap PO BID 01/20/18 Reported Glucophage (Metformin Hcl) 500 Mg Tab 500 Mg PO BID 01/20/18 Reported Basaglar Kwikpen (Insulin Glargine) 100 Unit/Ml Inj 80 Unit SC QPM 01/20/18 Reported Novolog Flexpen (Insulin Aspart) 100 Units/Ml Inj 1 Dose SC UD 11/07/16 Reported COVERAGE DIRECTED BY SLIDING SCALE Vital Signs Weight (Kilograms): 99.55 Height (Feet): 5 Height (Inches): 0 Date Time Temp Pulse Resp B/P (MAP) Pulse Ox O2 Delivery O2 Flow Rate FiO2 01/31/18 08:14 36.5 57 20 144/72 (96) 96 Room Air Physical Exam General Appearance: WD/WN, no apparent distress Respiratory/Chest: Auscultation: breath sounds normal Cardiovascular: Heart Auscultation: RRR Abdomen: Bowel Sounds: normal Inspection & Palpation: soft, non-distended, no tenderness, guarding & rebound Assessment and Plan Assessment: 72 yo CF who presents for screening colonoscopy. Plan: Proceed with colonoscopy.
--- NOTE | 2018-01-31 09:02 | Discharge Instructions ---
Endoscopy Patient Instructions Date / Procedure(s) Performed Jan 31, 2018. Colonoscopy Allergy Information Coded Allergies: Rosiglitazone (Verified Allergy, Severe, leg and arm swelling, heaviness in chest, 01/31/18) Acetaminophen (Unverified Allergy, Unknown, unknown, 01/31/18) Adhesives (Verified Allergy, Unknown, SKIN IRRITATION/BLISTERS, 01/31/18) Flurbiprofen (Verified Allergy, Unknown, nausea, muscle pain, pain in side , 01/31/18) Insulin Isophane (Verified Adverse Reaction, Intermediate, funny feeling in the morning, urinated more, dry mouth, 01/31/18) Amlodipine (Verified Adverse Reaction, Mild, nausea and dizziness, 01/31/18 ) Amoxicillin (Verified Adverse Reaction, Mild, nausea, diarrhea, 01/31/18) Cephalexin (Verified Adverse Reaction, Mild, diarrhea, vomiting, 01/31/18) Naproxen (Verified Adverse Reaction, Mild, interference with kidney function, 01/31/18) Nitrofurantoin (Verified Adverse Reaction, Mild, diarrhea,vomiting, ) Pioglitazone (Verified Adverse Reaction, Mild, dry mouth, 01/31/18) Propoxyphene (Verified Adverse Reaction, Mild, NAUSEA, DIZZINESS, 01/31/18) Sulfamethoxazole w/Trimethoprim (Verified Adverse Reaction, Mild, diarrhea and vomiting, 01/31/18) Sulindac (Verified Adverse Reaction, Mild, fast heart beat, 01/31/18) Discharge Date / Findings Jan 31, 2018. Colon polyps Internal hemorrhoids Medication Instructions Stopped Medication(s): METFORMIN OK to resume all medications today as prescribed Reported Home Medications Medications Dose Route/Sig Max Daily Dose Days Date Category Dose Instructions Multivitamin (Multivitamins) Tab 1 Tab PO DAILY 01/20/18 Reported [Cranberry] 3,600 Mg PO DAILY 01/20/18 Reported Vitamin D3 (Cholecalciferol) 2,000 Unit Cap 1 Cap PO DAILY 01/20/18 Reported Vitamin B12 (Cyanocobalamin) 1,000 Mcg Tab 1 Tab PO DAILY 01/20/18 Reported Remicade (Infliximab) 100 Mg/10 Ml Inj 1 Dose IV [id number] 01/20/18 Reported Aspirin Chewable (Aspirin) 81 Mg Chew 81 Mg PO QAM 01/20/18 Reported Levothyroxine Sodium 125 Mcg Tab 1 Tab PO QAM 01/20/18 Reported Crestor (Rosuvastatin Calcium) 20 Mg Tab 20 Mg PO HS 01/20/18 Reported Hctz (Hydrochlorothiazide) 25 Mg Tab 25 Mg PO QAM 01/20/18 Reported Apresoline (Hydralazine Hcl) 10 Mg Tab 10 Mg PO QID 01/20/18 Reported Tenormin (Atenolol) 100 Mg Tab 100 Mg PO QAM 01/20/18 Reported Ramipril 10 Mg Cap 1 Cap PO BID 01/20/18 Reported Glucophage (Metformin Hcl) 500 Mg Tab 500 Mg PO BID 01/20/18 Reported Basaglar Kwikpen (Insulin Glargine) 100 Unit/Ml Inj 80 Unit SC QPM 01/20/18 Reported Novolog Flexpen (Insulin Aspart) 100 Units/Ml Inj 1 Dose SC UD 11/07/16 Reported COVERAGE DIRECTED BY SLIDING SCALE Provider Instructions Activity Restrictions - No exercising or heavy lifting for 24 hours. - Do not drink alcohol the day of the procedure. - Do not drive a car or operate machinery until the day after the procedure. - Do not make any important decisions or sign important papers in 24 hours after the procedure. Following Day: - Return to full activity which may include returning to work/school. Diet Start your diet with liquids and light foods (jello, soup, juice, toast). Then eat your usual diet if not nauseated. Treatment For Common After Affects For mild abdominal pain, bloating, or excessive gas: - Rest - Eat lightly - Lie on right side Follow-Up Information Follow-up with DR ANDREWS as scheduled Anesthesia Information What You Should Know You have had a procedure that required some medicine to reduce anxiety and discomfort. This treatment is called moderate sedation. After receiving the treatment, you may be sleepy, but you will be able to breathe on your own. The effects of the treatment may last for several hours. Follow these instructions along with Activity/Diet recommendations noted above: * Do NOT do anything where dizziness or clumsiness would be dangerous. * Rest quietly at home today, then you can be up and about tomorrow. * Have a responsible person stay with you the rest of today. * You may have had an I.V. today. If so, you may take the dressing off later today. Recommendations Call your doctor if: * Trouble breathing * Continuous vomiting for more than 24 hours * Temperature above 101 degrees * Severe abdominal pain or bloating * Pain not relieved by pain medicine ordered * There is increased drainage or redness from any incision * A large amount of rectal bleeding greater than 2-3 tablespoons. (If you had a polyp/s removed or have hemorrhoids, a small amount of blood - from the rectum is to be expected.) * You have any unanswered questions or concerns. IN THE EVENT OF A SERIOUS EMERGENCY, GO TO THE NEAREST EMERGENCY ROOM Your discharge instructions were prepared by provider Don Watkins. Patient Instructions Signature Page Liberty Andrew Patient (or Guardian) Signature/Date: I have read and understand the instructions given to me by my caregivers. Caregiver/RN/Doctor Signature/Date: The above-named patient and/or guardian has received patient instructions on this date. + Original Patient Signature Page (only) stays with chart. Please make copy for patient.
--- NOTE | 2018-01-31 09:18 | GI REPORT ---
Procedure Date: 01/31/2018 8:10 AM Procedure: Colonoscopy Indications: Screening for colorectal malignant neoplasm Medicines: Monitored Anesthesia Care Complications: No immediate complications. Estimated Blood Loss: Estimated blood loss: none. Procedure: Pre-Anesthesia Assessment: - Prior to the procedure, a History and Physical was performed, and patient medications and allergies were reviewed. The patient's tolerance of previous anesthesia was also reviewed. The risks and benefits of the procedure and the sedation options and risks were discussed with the patient. All questions were answered, and informed consent was obtained. Prior Anticoagulants: The patient has taken aspirin, last dose was 1 day prior to procedure. ASA Grade Assessment: III - A patient with severe systemic disease. After reviewing the risks and benefits, the patient was deemed in satisfactory condition to undergo the procedure. After I obtained informed consent, the scope was passed under direct vision. Throughout the procedure, the patient's blood pressure, pulse, and oxygen saturations were monitored continuously. The Scope was introduced through the anus and advanced to the terminal ileum. The colonoscopy was performed without difficulty. The patient tolerated the procedure well. The quality of the bowel preparation was good. The terminal ileum, ileocecal valve, appendiceal orifice, and rectum were photographed. Findings: The perianal and digital rectal examinations were normal. Two sessile polyps were found in the descending colon. The polyps were 4 to 5 mm in size. These polyps were removed with a cold snare. Resection and retrieval were complete. Non-bleeding internal hemorrhoids were found during retroflexion. The hemorrhoids were small. Impression: - Two 4 to 5 mm polyps in the descending colon, removed with a cold snare. Resected and retrieved. - Non-bleeding internal hemorrhoids. Recommendation: - Resume previous diet. - Continue present medications. - Repeat colonoscopy for surveillance based on pathology results. - Return to primary care physician as previously scheduled. Don Watkins DO 01/31/2018 9:17:20 AM This report has been signed electronically. Note Initiated On: 01/31/2018 8:10 AM I attest to the content of the Intraoperative Record and orders documented therein, exceptions below
[2018-01-31 09:19] VITALS: BP 122/58; PULSE 60; O2SAT 96
--- NOTE | 2018-01-31 09:24 | Anesthesiology Progress Note ---
Anesthesia Post Op Note Date & Time Jan 31, 2018 at 09:24 Vital Signs Pain Intensity: 0 Vital Signs Past 12 Hours Date Time Temp Pulse Resp B/P (MAP) Pulse Ox O2 Delivery O2 Flow Rate FiO2 01/31/18 09:06 59 20 105/51 (69) 94 Room Air 01/31/18 08:14 36.5 57 20 144/72 (96) 96 Room Air Notes Mental Status: alert / awake / arousable, participated in evaluation Pt Amnestic to Procedure: Yes Nausea / Vomiting: adequately controlled Pain: adequately controlled Airway Patency, RR, SpO2: stable & adequate BP & HR: stable & adequate Hydration State: stable & adequate Anesthetic Complications: no major complications apparent
== END | disposition home or self-care (01) ==
LOC: C.GI 07:44
PROVIDERS: ATTEND Internal Medicine
DX: Z12.11 Encounter for screening for malignant neoplasm of colon (principal); D12.4 Benign neoplasm of descending colon; K64.8 Other hemorrhoids; I10 Essential (primary) hypertension; E11.9 Type 2 diabetes mellitus without complications; E03.9 Hypothyroidism, unspecified; Z88.0 Allergy status to penicillin; Z88.1 Allergy status to other antibiotic agents; Z88.2 Allergy status to sulfonamides; Z88.6 Allergy status to analgesic agent; Z90.710 Acquired absence of both cervix and uterus; Z79.82 Long term (current) use of aspirin

== ENCOUNTER → 2018-02-11 | Outpatient (CLI) | payer OTHER ==
[~2018-02-11] MED LIST changes: -LIDOCAINE HCL 2% 2 ML VIAL (20MG/ML) ONE; -PROPOFOL IV EMULSION 10 MG/ML 20 ML VIAL IV ONE; -SODIUM CHLORIDE 0.9% 500ML 500 ML IV ONE
[2018-02-11 09:22] LABS: BASO % 0.6 %; BASO ABS # 0.04 K/uL (0-0.2); EOS % 2.9 %; EOS ABS # 0.21 K/uL (0-0.5); HEMATOCRIT 33.3 % (37-47); HEMOGLOBIN 11.3 g/dL (12.0-16.0); IG# 0.02 K/uL (0.00-0.02); LYMPH % 29.5 %; LYMPH ABS # 2.12 K/uL (1.2-3.4); MEAN CELL VOLUME 87.9 fL (80-100); MEAN CORPUSCULAR HEMOGLOBIN 29.8 pg (25-34); MEAN CORPUSCULAR HGB CONC 33.9 g/dl (32-36); MEAN PLATELET VOLUME 8.5 fL (7.4-10.4); MONO % 12.8 %; MONO ABS # 0.92 K/uL (0.11-0.59); NEUT % 53.9 %; NEUT ABS # 3.87 K/uL (1.4-6.5); PLATELET COUNT 223 K/uL (130-400); RED CELL DISTRIBUTION WIDTH SD 44.1 fL (36.4-46.3); WHITE BLOOD COUNT 7.18 K/uL (4.8-10.8)
[2018-02-11 09:39] LABS: ALBUMIN 3.7 gm/dl (3.4-5.0); ALT/SGPT 51 U/L (12-78); AST/SGOT 44 U/L (15-37); CREATININE 1.08 mg/dl (0.60-1.20)
[2018-02-11 09:42] LABS: ALKALINE PHOSPHATASE 37 U/L (45-117); TOTAL PROTEIN 7.5 gm/dl (6.4-8.2)
== END | disposition home or self-care (01) ==
LOC: C.LAB 16:00
PROVIDERS: ATTEND Internal Medicine Rheumatology
DX: R74.0 Nonspecific elevation of levels of transaminase and lactic acid dehydrogenase [LDH] (principal); Z79.899 Other long term (current) drug therapy; L40.50 Arthropathic psoriasis, unspecified

== ENCOUNTER 2018-03-05 19:11 | Emergency (ER) | payer OTHER ==
[~2018-03-05] VITALS: Ht 165.1 cm; Wt 99.0 kg
[2018-03-05 19:16] VITALS: TEMP 37.1; Ht 165.1 cm; Wt 99.0 kg
[2018-03-05] MEDS ORDERED: SODIUM CHLORIDE 0.9% 500ML 500 ML IV STA (19:32)
[2018-03-05] MEDS ORDERED: ONDANSETRON INJ 2 MG/ML 2 ML VIAL IV STA (19:33)
[2018-03-05 19:50] VITALS: O2SAT 95
[2018-03-05 19:54] LABS: BASO % 0.3 %; BASO ABS # 0.04 K/uL (0-0.2); EOS % 0.7 %; EOS ABS # 0.09 K/uL (0-0.5); HEMATOCRIT 34.2 % (37-47); HEMOGLOBIN 11.7 g/dL (12.0-16.0); IG# 0.03 K/uL (0.00-0.02); LYMPH % 16.2 %; LYMPH ABS # 2.01 K/uL (1.2-3.4); MEAN CELL VOLUME 88.1 fL (80-100); MEAN CORPUSCULAR HEMOGLOBIN 30.2 pg (25-34); MEAN CORPUSCULAR HGB CONC 34.2 g/dl (32-36); MEAN PLATELET VOLUME 8.7 fL (7.4-10.4); MONO % 14.7 %; MONO ABS # 1.82 K/uL (0.11-0.59); NEUT % 67.9 %; NEUT ABS # 8.42 K/uL (1.4-6.5); PLATELET COUNT 231 K/uL (130-400); RED CELL DISTRIBUTION WIDTH CV 14.3 % (11.5-14.5); WHITE BLOOD COUNT 12.41 K/uL (4.8-10.8)
[2018-03-05] MEDS ORDERED: ASPI81TA28 PO (20:12)
--- NOTE | 2018-03-05 20:28 | DIAGNOSTIC IMAGING REPORT ---
CHEST ONE VIEW PORTABLE CLINICAL HISTORY: Weakness, fevers and chills. COMPARISON STUDY: Chest radiograph November 09, 2016. FINDINGS: Lung volumes are diminished. Mild left basilar opacity favors atelectasis. There is a possible trace left pleural effusion. No evidence for pulmonary edema. Mild cardiomegaly is noted. IMPRESSION: 1. No acute cardiopulmonary findings. 2. Mild left basilar opacity which favors atelectasis. Electronically signed by: Sumeet Durand M.D. 03/05/2018 8:27 PM Dictated Date/Time: 03/05/2018 8:25 PM
[2018-03-05 20:29] LABS: ALBUMIN 3.9 gm/dl (3.4-5.0); CREATININE 1.05 mg/dl (0.60-1.20); POTASSIUM 3.9 mmol/L (3.5-5.1); TOTAL PROTEIN 8.4 gm/dl (6.4-8.2)
[2018-03-05] MEDS ORDERED: LEVAQUIN 500MG / 100ML D5W IV ONE (21:45)
[2018-03-05 22:57] VITALS: BP 127/73; PULSE 96; O2SAT 94
[2018-03-05] MEDS ORDERED: LEVO-366 PO (23:00)
--- NOTE | 2018-03-06 01:33 | EMERGENCY ROOM VISIT NOTE ---
History Report prepared by Ulises: Trever Robertson Under the Supervision of: Dr. Nader Alvares M.D. First contact with patient: 19:21 Chief Complaint: FLU LIKE SX Stated Complaint: FEVER, CHILLS, NAUSEA, MAYBE UTI History of Present Illness The patient is a 72 year old female who presents to the Emergency Room with complaints of a constant fever beginning this morning. The patient states that she has not been able to urinate much recently. She also complains of chills, aches, and nausea. She notes that she had a UTI last year, and believes that she may have another. She denies any cough, rhinorrhea, sore throat, SOB, CP, abdominal pain, back pain, and urinary burning. She reports that she last took Tylenol at 1400 today with mild relief of her symptoms. The patient states that she takes aspirin and Remicade. She notes that she has a history of diabetes, hypertension, and arthritis. Source of History: patient Onset: this morning Position: other (global) Quality: other (fever) Timing: constant Modifying Factors (Relieving): tylenol Associated Symptoms: + chills, + nausea Note: The patient also complains of aches and a decreased frequency of urination. Review of Systems See HPI for pertinent positives and negatives. A total of ten systems were reviewed and were otherwise negative. Past Medical & Surgical Medical Problems: (1) Arthritis (2) Diabetes (3) High blood pressure (4) Pneumonia (5) UTI (urinary tract infection) Family History Cancer Diabetes mellitus Heart disease Hypertension Social History Smoking Status: Never Smoker Alcohol Use: none Drug Use: none Marital Status: Housing Status: lives with family Occupation Status: retired Current/Historical Medications Scheduled Aspirin (Aspirin Ec), 81 MG PO DAILY Atenolol (Tenormin), 100 MG PO QAM Cholecalciferol (Vitamin D3), 1 CAP PO DAILY Cyanocobalamin (Vitamin B12), 1 TAB PO DAILY Hydralazine Hcl (Apresoline), 10 MG PO QID Hydrochlorothiazide (Hctz), 25 MG PO QAM Infliximab (Remicade), 1 DOSE IV [id number] Insulin Aspart (Novolog Flexpen), 1 DOSE SC UD Insulin Glargine (Basaglar Kwikpen), 90 UNIT SC QPM Levofloxacin (Levaquin), 500 MG PO DAILY Levothyroxine Sodium (Levothyroxine Sodium), 1 TAB PO QAM Metformin Hcl (Glucophage), 500 MG PO BID Multivitamin (Multivitamin), 1 TAB PO DAILY Ramipril (Ramipril), 1 CAP PO BID Rosuvastatin Calcium (Crestor), 20 MG PO HS [Cranberry], 3,600 MG PO DAILY Allergies Coded Allergies: Rosiglitazone (Verified Allergy, Severe, leg and arm swelling, heaviness in chest, 01/31/18) Acetaminophen (Unverified Allergy, Unknown, unknown, 01/31/18) Adhesives (Verified Allergy, Unknown, SKIN IRRITATION/BLISTERS, 01/31/18) Flurbiprofen (Verified Allergy, Unknown, nausea, muscle pain, pain in side , 01/31/18) Insulin Isophane (Verified Adverse Reaction, Intermediate, funny feeling in the morning, urinated more, dry mouth, 01/31/18) Amlodipine (Verified Adverse Reaction, Mild, nausea and dizziness, 01/31/18 ) Amoxicillin (Verified Adverse Reaction, Mild, nausea, diarrhea, 01/31/18) Cephalexin (Verified Adverse Reaction, Mild, diarrhea, vomiting, 01/31/18) Naproxen (Verified Adverse Reaction, Mild, interference with kidney function, 01/31/18) Nitrofurantoin (Verified Adverse Reaction, Mild, diarrhea,vomiting, ) Pioglitazone (Verified Adverse Reaction, Mild, dry mouth, 01/31/18) Propoxyphene (Verified Adverse Reaction, Mild, NAUSEA, DIZZINESS, 01/31/18) Sulfamethoxazole w/Trimethoprim (Verified Adverse Reaction, Mild, diarrhea and vomiting, 01/31/18) Sulindac (Verified Adverse Reaction, Mild, fast heart beat, 01/31/18) Physical Exam Vital Signs Date Time Temp Pulse Resp B/P (MAP) Pulse Ox O2 Delivery O2 Flow Rate FiO2 03/05/18 22:57 96 20 127/73 94 Room Air 03/05/18 21:41 94 20 138/64 95 Room Air 03/05/18 20:00 91 03/05/18 19:50 95 Room Air 03/05/18 19:16 37.1 87 18 138/58 94 Room Air Physical Exam GENERAL: Awake, alert, well-appearing, in no distress, tired appearing. HENT: Normocephalic, atraumatic. Oropharynx unremarkable. EYES: Normal conjunctiva. Sclera non-icteric. NECK: Supple. No nuchal rigidity. FROM. No masses. RESPIRATORY: Clear to auscultation. No wheezes. No rales. Normal respiratory effort. CARDIAC: Normal rate. Normal rhythm. No murmurs. No rubs. Extremities warm and well perfused. Pulses equal. No JVD. GI: Soft, non-distended. No tenderness to palpation. No rebound or guarding. No masses. RECTAL: Deferred. MUSCULOSKELETAL: Atraumatic. Chest examination reveals no tenderness. The back is symmetrical on inspection without obvious abnormality. There is no CVA tenderness to palpation. No joint edema. LOWER EXTREMITIES: Calves are equal size bilaterally and non-tender. No edema. No discoloration. NEURO: Normal sensorium. No sensory or motor deficits noted. SKIN: No rash or jaundice noted. Medical Decision & Procedures ER Provider Diagnostic Interpretation: Radiology results as stated below per my review and radiologist interpretation: CHEST ONE VIEW PORTABLE CLINICAL HISTORY: Weakness, fevers and chills. COMPARISON STUDY: Chest radiograph November 09, 2016. FINDINGS: Lung volumes are diminished. Mild left basilar opacity favors atelectasis. There is a possible trace left pleural effusion. No evidence for pulmonary edema. Mild cardiomegaly is noted. IMPRESSION: 1. No acute cardiopulmonary findings. 2. Mild left basilar opacity which favors atelectasis. Electronically signed by: Sumeet Durand M.D. 03/05/2018 8:27 PM Laboratory Results 03/05/18 19:40 Red Blood Count 3.88, Mean Corpuscular Volume 88.1, Mean Corpuscular Hemoglobin 30.2, Mean Corpuscular Hemoglobin Concent 34.2, Mean Platelet Volume 8.7, Neutrophils (%) (Auto) 67.9, Lymphocytes (%) (Auto) 16.2, Monocytes (%) (Auto) 14.7, Eosinophils (%) (Auto) 0.7, Basophils (%) (Auto) 0.3, Neutrophils # (Auto ) 8.42, Lymphocytes # (Auto) 2.01, Monocytes # (Auto) 1.82, Eosinophils # (Auto ) 0.09, Basophils # (Auto) 0.04 03/05/18 19:40 Test 03/05/18 19:40 03/05/18 21:00 White Blood Count 12.41 K/uL (4.8-10.8) Red Blood Count 3.88 M/uL (4.2-5.4) Hemoglobin 11.7 g/dL (12.0-16.0) Hematocrit 34.2 % (37-47) Mean Corpuscular Volume 88.1 fL (80-100) Mean Corpuscular Hemoglobin 30.2 pg (25-34) Mean Corpuscular Hemoglobin Concent 34.2 g/dl (32-36) Platelet Count 231 K/uL (130-400) Mean Platelet Volume 8.7 fL (7.4-10.4) Neutrophils (%) (Auto) 67.9 % Lymphocytes (%) (Auto) 16.2 % Monocytes (%) (Auto) 14.7 % Eosinophils (%) (Auto) 0.7 % Basophils (%) (Auto) 0.3 % Neutrophils # (Auto) 8.42 K/uL (1.4-6.5) Lymphocytes # (Auto) 2.01 K/uL (1.2-3.4) Monocytes # (Auto) 1.82 K/uL (0.11-0.59) Eosinophils # (Auto) 0.09 K/uL (0-0.5) Basophils # (Auto) 0.04 K/uL (0-0.2) RDW Standard Deviation 46.0 fL (36.4-46.3) RDW Coefficient of Variation 14.3 % (11.5-14.5) Immature Granulocyte % (Auto) 0.2 % Immature Granulocyte # (Auto) 0.03 K/uL (0.00-0.02) Anion Gap 9.0 mmol/L (3-11) Est Creatinine Clear Calc Drug Dose 58.1 ml/min Estimated GFR () 62.3 Estimated GFR (Non- 53.8 BUN/Creatinine Ratio 27.9 (10-20) Calcium Level 9.0 mg/dl (8.5-10.1) Magnesium Level 1.8 mg/dl (1.8-2.4) Total Bilirubin 0.6 mg/dl (0.2-1) Direct Bilirubin 0.2 mg/dl (0-0.2) Aspartate Amino Transf (AST/SGOT) 49 U/L (15-37) Alanine Aminotransferase (ALT/SGPT) 51 U/L (12-78) Alkaline Phosphatase 33 U/L (45-117) Total Protein 8.4 gm/dl (6.4-8.2) Albumin 3.9 gm/dl (3.4-5.0) Lipase 207 U/L (73-393) Thyroid Stimulating Hormone (TSH) 0.971 uIu/ml (0.300-4.500) Urine Color YELLOW Urine Appearance CLEAR (CLEAR) Urine pH 5.0 (4.5-7.5) Urine Specific Hoagland 1.018 (1.000-1.030) Urine Protein NEG (NEG) Urine Glucose (UA) NEG (NEG) Urine Ketones NEG (NEG) Urine Occult Blood NEG (NEG) Urine Nitrite POS (NEG) Urine Bilirubin NEG (NEG) Urine Urobilinogen NEG (NEG) Urine Leukocyte Esterase MODERATE (NEG) Urine WBC (Auto) >30 /hpf (0-5) Urine RBC (Auto) 0-4 /hpf (0-4) Urine Hyaline Casts (Auto) 1-5 /lpf (0-5) Urine Epithelial Cells (Auto) 5-10 /lpf (0-5) Urine Bacteria (Auto) 4+ (NEG) Laboratory results reviewed by me Medications Administered Medications (Trade) Dose Ordered Sig/Elke Route Start Time Stop Time Status Last Admin Dose Admin Sodium Chloride 500 ml @ 999 mls/hr Q31M STAT IV 03/05/18 19:32 03/05/18 20:02 DC 03/05/18 19:45 999 MLS/HR Ondansetron HCl (Zofran Inj) 4 mg NOW STAT IV 03/05/18 19:33 03/05/18 19:34 DC 03/05/18 19:48 4 MG Levofloxacin (Levaquin / D5W) 500 mg NOW ONCE IV 03/05/18 21:45 03/05/18 21:46 DC 03/05/18 22:00 500 MG ECG Per My Interpretation Indication: nausea Rate (beats per minute): 87 Rhythm: normal sinus Findings: Q waves (Anterior), no acute ischemic change, no ectopy, other (LVH) Comparison ECG Date: 10/13/2016 Change: no significant change ED Course 4: The patient was evaluated in room C7. A complete history and physical exam was performed. 1931: Sodium Chloride 500 ml @ 999 mls/hr IV 1932: Zofran Inj 4mg IV 2144: Levofloxacin 500mg IV 2150: I reevaluated and updated the patient. 2226: I reevaluated the patient. Discussed results and discharge instructions: she verbalized understanding and agreement. The patient is ready for discharge. Medical Decision Triage Nursing notes reviewed. The patient's presentation and history were concerning for urinary symptoms and nausea. Etiologies such as urinary tract infection, metabolic, hypo/hyperglycemia, electrolyte abnormalities, well as others were entertained. Patient was evaluated. She was doing relatively well. She was given a dose of Zofran. She was hydrated. Her blood work showed a slight leukocytosis. Her chemistry panel was unremarkable. The patient had an unremarkable chest x-ray. She had some difficulty giving a urine sample at first but was able to provide one after hydration. This was concerning for infection. She has a long list of allergies and can take quinolones. She was given a dose of IV Levaquin. She will be treated with oral Levaquin for an additional 6 days. The patient desires discharge and is hemodynamically stable. She clinically looks well. If she worsens in any way she agrees to come back promptly to the ER. She will follow-up closely as an outpatient on Wednesday. I gave my usual and customary discussion regarding this issue. By the evaluation outlined above other emergent etiologies such as those listed in the differential, as well as others, were deemed relatively unlikely. The patient was educated about the findings as listed above. All questions were answered and the patient was pleased with the treatment. Return instructions were outlined and the patient was discharged in stable condition. The patient was referred to her PCP for follow-up for a recheck of the current condition. Medication Reconcilliation Current Medication List: was personally reviewed by me Blood Pressure Screening Patient's blood pressure: Normal blood pressure Blood pressure disposition: Did not require urgent referral Impression Primary Impression: UTI (urinary tract infection) Additional Impressions: Nausea Mild dehydration Scribe Attestation The scribe's documentation has been prepared under my direction and personally reviewed by me in its entirety. I confirm that the note above accurately reflects all work, treatment, procedures, and medical decision making performed by me. Departure Information Dispostion Home / Self-Care Prescriptions Levofloxacin (Levaquin) 500 Mg Tab 500 MG PO DAILY for 6 Days, #6 TAB Prov: Nader Alvares MD 03/05/18 Referrals Moisés Saleem M.D. (PCP) Forms HOME CARE DOCUMENTATION FORM, IMPORTANT VISIT INFORMATION Patient Instructions My [facility] Additional Instructions URINARY TRACT INFECTION INSTRUCTIONS: Levofloxacin (Levaquin) 500 mg: Take 1 pill for the next 6 days for your urine infection. All antibiotics can cause diarrhea. If this occurs and you feel worse or it does not resolve in 1-2 days follow up with your doctor or return to the Emergency Department as this could be signs of serious underlying problems. If you experience any pain in your tendons or any tendon injury return to the ER for re-evaluation. Any medication can cause an allergic reaction, stop the pills immediately and return to the ER for rash, hives, breathing difficulties, or swelling. Acetaminophen(Tylenol) may be used for fever or pain. Use 1000mg every six hours as needed. Avoid using more than 4000mg in a 24 hour period. Rest and drink plenty of fluids. Continue current medications. Return to the ER immediately for worsening or persistent abdominal pain, vomiting, fevers, back or flank pain, worsening of your condition, or as needed. Follow up with your primary physician within 3 days for a recheck of the current condition. Problem Qualifiers
[2018-03-07] MEDS ORDERED: CRAN1TAB6 PO (09:17)
[2018-03-07] MEDS ORDERED: ONDA4TAB10 SL (10:00)
== END 2018-03-05 23:09 | disposition home or self-care (01) ==
LOC: C.EDB 19:12 → C.EDC 23:09
DX: N39.0 Urinary tract infection, site not specified (principal); E86.0 Dehydration; R11.0 Nausea; Z87.440 Personal history of urinary (tract) infections; E11.9 Type 2 diabetes mellitus without complications; I10 Essential (primary) hypertension; M19.90 Unspecified osteoarthritis, unspecified site; Z87.01 Personal history of pneumonia (recurrent); Z80.9 Family history of malignant neoplasm, unspecified; Z83.3 Family history of diabetes mellitus; Z82.49 Family history of ischemic heart disease and other diseases of the circulatory system; Z79.82 Long term (current) use of aspirin; Z79.4 Long term (current) use of insulin; Z79.84 Long term (current) use of oral hypoglycemic drugs; Z79.899 Other long term (current) drug therapy; Z88.8 Allergy status to other drugs, medicaments and biological substances; Z88.6 Allergy status to analgesic agent; Z88.1 Allergy status to other antibiotic agents; Z88.0 Allergy status to penicillin; Z88.2 Allergy status to sulfonamides

== ENCOUNTER → 2018-05-11 | Outpatient (CLI) | payer OTHER ==
[~2018-05-11] MED LIST changes: -ASPCH81X PO; +ASPI81TA28 PO; +CRAN1TAB6 PO; -CRANPOW PO; +ONDA4TAB10 SL
[2018-05-11 13:46] LABS: HEMOGLOBIN A1C 7.3 % (4.5-5.6)
[2018-05-11 13:52] LABS: CREATININE RANDOM URINE 65.7 mg/dl
[2018-05-11 14:14] LABS: ALBUMIN 3.8 gm/dl (3.4-5.0); ALKALINE PHOSPHATASE 34 U/L (45-117); ALT/SGPT 50 U/L (12-78); AST/SGOT 65 U/L (15-37); BLOOD UREA NITROGEN 21 mg/dl (7-18); CALCIUM 9.2 mg/dl (8.5-10.1); CARBON DIOXIDE 23 mmol/L (21-32); CHOLESTEROL 155 mg/dl (0-200); CREATININE 0.98 mg/dl (0.60-1.20); GLUCOSE 134 mg/dl (70-99); LDL CHOLESTEROL CALCULATED 70 mg/dl; SODIUM 134 mmol/L (136-145)
== END | disposition home or self-care (01) ==
LOC: C.LABMFLN 07:09
PROVIDERS: ATTEND Family Medicine
DX: I10 Essential (primary) hypertension (principal); E78.5 Hyperlipidemia, unspecified; E11.9 Type 2 diabetes mellitus without complications; E03.9 Hypothyroidism, unspecified; M85.80 Other specified disorders of bone density and structure, unspecified site

== ENCOUNTER → 2018-05-25 | Outpatient (CLI) | payer OTHER | END | disposition home or self-care (01) | LOC: C.LABMFLN 11:17 | PROVIDERS: ATTEND Family Medicine | DX: R35.0 Frequency of micturition (principal) ==

== ENCOUNTER → 2018-05-31 | Outpatient (CLI) | payer OTHER | END | disposition home or self-care (01) | LOC: C.LABMFLN 08:41 | PROVIDERS: ATTEND Family Medicine | DX: E03.9 Hypothyroidism, unspecified (principal) ==